=== PATIENT | female | born 1970 | race Two or more races ===

== ENCOUNTER 2024-01-21 15:18 | Inpatient (IN) | payer MEDICAID, OTHER ==
[~2024-01-21] VITALS: Ht 165.1 cm; Wt 68.2 kg
[2024-01-21] MEDS: ONDANSETRON HCL 4 MG/2 ML VIAL IV ONE (18:40)
[2024-01-21] MEDS: NITROGLYCERIN 2% OINT 1GM PKG TD ONE (18:44)
[2024-01-21] MEDS: MORPHINE SULFATE 4 MG/ML SYR/VIAL IV ONE (18:45)
[2024-01-21 19:10] LABS: Basophils # (auto) 0.1 10 ^3/uL (0-0.2); Basophils % (auto) 1.2 % (0.0-2.0); Eosinophils # (auto) 0.2 10 ^3/uL (0-0.8); Hematocrit 34.5 % (36.0-46.0); Hemoglobin 11.3 g/dL (12.2-16.2); Lymphocytes # (auto) 1.9 10 ^3/uL (0.4-5.4); Lymphocytes % (auto) 36.1 % (10.0-50.0); Mean Corpuscular Hemoglobin 29.9 pg (28.0-32.0); Mean Corpuscular Hgb Conc. 32.9 g/dL (32.0-36.0); Mean Corpuscular Volume 90.9 fL (80.0-100.0); Monocytes # (auto) 0.5 10 ^3/uL (0-1.3); Monocytes % (auto) 9.5 % (0.0-12.0); Neutrophils # (auto) 2.7 10 ^3/uL (1.6-8.6); Neutrophils % (auto) 50.2 % (37.0-80.0); Nucleated Red Blood Cells % 0.1 %; Red Blood Cells 3.79 10^6/uL (4.0-5.20); Red Cell Distribution Width 17.9 % (11.8-14.3); White Blood Cell 5.3 10^3/uL (4.4-10.8)
[2024-01-21 19:27] LABS: Alkaline Phosphatase 51 U/L (46-116); Anion Gap 11 (5-15); BUN/Creatinine Ratio 3.7 (10.0-20.0); Blood Urea Nitrogen 24 mg/dL (9-23); Calcium 9.9 mg/dL (8.7-10.4); Carbon Dioxide 30 mmol/L (20-30); Chloride 98 mmol/L (98-107); Glucose 122 mg/dL (74-106); Potassium 4.4 mmol/L (3.5-5.1); Sodium 139 mmol/L (136-145)
[2024-01-21 19:28] LABS: Albumin 3.9 g/dL (3.2-4.8); Aspartate Aminotransferase < 8 U/L (13-40)
[2024-01-21 19:29] LABS: Bilirubin, Total 0.3 mg/dL (0.2-1.0); Total Protein 7.1 g/dL (5.7-8.2)
[2024-01-21 19:30] LABS: Alanine Aminotransferase < 9 U/L (7-40)
[2024-01-21] MEDS: LABETALOL HCL 20 MG/4 ML VL IV ONE (21:51)
[2024-01-21] MEDS: FUROSEMIDE 40 MG/4 ML VIAL IV ONE (21:52)
[2024-01-21] MEDS ORDERED: DOCUSATE SOD 100 MG CAP PO PRN (22:00)
[2024-01-21] MEDS ORDERED: FUROSEMIDE 40 MG/4 ML VIAL IV SCH (22:00)
[2024-01-21] MEDS ORDERED: ACETAMINOPHEN 325 MG TAB PO PRN (22:00)
[2024-01-21] MEDS: SODIUM CHLOR 0.9% PF (SALINE LOCK) 10ML VIAL/SYR IV SCH (22:08)
[2024-01-21 22:46] VITALS: PULSE 78; RESP 18; O2SAT 95
[2024-01-21] MEDS: hydrALAZINE HCL 20 MG/ML VL IV PRN (23:27)
[2024-01-21] MEDS: ONDANSETRON HCL 4 MG/2 ML VIAL IV PRN (23:28)
[2024-01-22] VITALS (9 sets, daily range): BP systolic 142–197; BP diastolic 49–104; PULSE 76–96; RESP 16–20; TEMP 97.8–98; O2SAT 91–97
[2024-01-22] MEDS: diphenhdrAMINE HCL 25 MG CAP PO ONE (00:13)
[2024-01-22] MEDS: HYDROcodone-ACET 5/325MG TAB PO PRN (02:54)
[2024-01-22] MEDS: FUROSEMIDE 40 MG/4 ML VIAL IV SCH (05:03)
[2024-01-22] MEDS: PANTOPRAZOLE 40 MG/10 ML VIAL INJ IV SCH (09:20)
[2024-01-22] MEDS: hydrALAZINE HCL 20 MG/ML VL IV ONE (11:45)
[2024-01-22] MEDS ORDERED: ASPI-543 PO (19:14)
[2024-01-22] MEDS ORDERED: METF-370 PO (19:14)
[2024-01-22] MEDS ORDERED: CARV12.544 PO (19:14)
[2024-01-22] MEDS ORDERED: DICY-89 PO (19:14)
[2024-01-22] MEDS ORDERED: AMIT25TA20 PO (19:14)
[2024-01-22] MEDS ORDERED: CEFP200T15 PO (19:14)
[2024-01-22] MEDS ORDERED: SENN-58 PO (19:14)
[2024-01-22] MEDS ORDERED: HYDR-4902 PO (19:14)
[2024-01-22] MEDS ORDERED: GLIP5TAB21 PO (19:14)
[2024-01-22] MEDS: ATORVASTATIN 20 MG TAB PO SCH (21:48)
[2024-01-22] MEDS: SACUBITRIL-VALSARTAN 24mg/26mg TAB PO SCH (21:49)
[2024-01-22] MEDS: HEPARIN SODIUM (PORCINE) 5000 UNITS/ML 1ML VIAL SC SCH (21:50)
[2024-01-23] VITALS (9 sets, daily range): BP systolic 138–184; BP diastolic 70–111; PULSE 77–92; RESP 17–20; TEMP 97.3–98.7; O2SAT 93–98
[2024-01-23] MEDS: hydrALAZINE HCL 20 MG/ML VL IV ONE (06:22)
[2024-01-23] MEDS ORDERED: SODIUM CHL 0.9% 1000 ML BAG XX ONE (07:00)
[2024-01-23 07:08] LABS: Basophils # (auto) 0.1 10 ^3/uL (0-0.2); Eosinophils # (auto) 0.3 10 ^3/uL (0-0.8); Eosinophils % (auto) 5.6 % (0.0-7.0); Hematocrit 39.2 % (36.0-46.0); Hemoglobin 12.8 g/dL (12.2-16.2); Lymphocytes # (auto) 1.8 10 ^3/uL (0.4-5.4); Lymphocytes % (auto) 29.4 % (10.0-50.0); Mean Corpuscular Hemoglobin 29.8 pg (28.0-32.0); Mean Corpuscular Hgb Conc. 32.8 g/dL (32.0-36.0); Monocytes # (auto) 0.5 10 ^3/uL (0-1.3); Monocytes % (auto) 7.7 % (0.0-12.0); Neutrophils # (auto) 3.4 10 ^3/uL (1.6-8.6); Neutrophils % (auto) 56.3 % (37.0-80.0); Nucleated Red Blood Cells % 0.2 %; Red Blood Cells 4.31 10^6/uL (4.0-5.20); Red Cell Distribution Width 18.4 % (11.8-14.3)
[2024-01-23 07:20] LABS: Chloride 99 mmol/L (98-107); Potassium 4.9 mmol/L (3.5-5.1); Sodium 136 mmol/L (136-145)
[2024-01-23 07:21] LABS: Anion Gap 9 (5-15); Calcium 10.1 mg/dL (8.7-10.4); Carbon Dioxide 28 mmol/L (20-30)
[2024-01-23 07:26] LABS: BUN/Creatinine Ratio 3.6 (10.0-20.0); Blood Urea Nitrogen 29 mg/dL (9-23); Glucose 100 mg/dL (74-106)
[2024-01-23] MEDS ORDERED: FURO1TAB31 PO (08:11)
[2024-01-23] MEDS ORDERED: ATOR20TA50 PO (08:11)
[2024-01-23] MEDS ORDERED: SPIR25TA8 PO (08:11)
[2024-01-23] MEDS: ASPirin 81 mg TAB PO SCH (10:08)
[2024-01-24 01:00] VITALS: BP 179/87; PULSE 88; RESP 17; TEMP 97.4; O2SAT 90
[2024-01-24 05:00] VITALS: BP 163/81; PULSE 99; RESP 17; TEMP 98.1; O2SAT 90
[2024-01-24 07:06] LABS: Chloride 99 mmol/L (98-107); Potassium 4.2 mmol/L (3.5-5.1); Sodium 138 mmol/L (136-145)
[2024-01-24 07:07] LABS: Calcium 10.8 mg/dL (8.7-10.4)
[2024-01-24 07:12] LABS: BUN/Creatinine Ratio 3.6 (10.0-20.0); Blood Urea Nitrogen 24 mg/dL (9-23); Glucose 113 mg/dL (74-106)
[2024-01-24 07:15] LABS: Basophils # (auto) 0.1 10 ^3/uL (0-0.2); Basophils % (auto) 1.1 % (0.0-2.0); Eosinophils # (auto) 0.3 10 ^3/uL (0-0.8); Eosinophils % (auto) 6.4 % (0.0-7.0); Hematocrit 37.2 % (36.0-46.0); Hemoglobin 12.2 g/dL (12.2-16.2); Lymphocytes # (auto) 1.6 10 ^3/uL (0.4-5.4); Lymphocytes % (auto) 32.3 % (10.0-50.0); Mean Corpuscular Hgb Conc. 32.9 g/dL (32.0-36.0); Mean Corpuscular Volume 91.3 fL (80.0-100.0); Monocytes # (auto) 0.5 10 ^3/uL (0-1.3); Monocytes % (auto) 9.5 % (0.0-12.0); Neutrophils # (auto) 2.5 10 ^3/uL (1.6-8.6); Neutrophils % (auto) 50.7 % (37.0-80.0); Nucleated Red Blood Cells % 0.1 %; Red Blood Cells 4.07 10^6/uL (4.0-5.20); Red Cell Distribution Width 18.7 % (11.8-14.3)
[2024-01-24 07:32] LABS: Anion Gap 9 (5-15); Carbon Dioxide 30 mmol/L (20-30)
[2024-01-24 08:00] VITALS: PULSE 91; PULSE 94; RESP 17; O2SAT 95
[2024-01-24 09:21] VITALS: BP 197/95; PULSE 91; RESP 17; TEMP 97.6; O2SAT 95
[2024-01-24 14:06] VITALS: BP 179/87; PULSE 83; RESP 17; TEMP 97.5; O2SAT 99
[2024-01-24 14:50] VITALS: BP 152/78; PULSE 88; RESP 18; O2SAT 97
== END 2024-01-24 14:55 | disposition home or self-care (01) | DRG 194 ==
LOC: EDBD 15:18 → ER 15:18 → TELE 21:57 → TELE-EAST 21:57
PROVIDERS: ADMIT Internal Medicine Pulmonary Disease; ATTEND Emergency Medicine
PROC: 5A1D70Z Performance of Urinary Filtration, Intermittent, Less than 6 Hours Per Day (ICD-10-PCS; principal; 2024-01-23)
DX: I13.2 Hypertensive heart and chronic kidney disease with heart failure and with stage 5 chronic kidney disease, or end stage renal disease (principal); N18.6 End stage renal disease; E11.22 Type 2 diabetes mellitus with diabetic chronic kidney disease; I16.0 Hypertensive urgency; I25.10 Atherosclerotic heart disease of native coronary artery without angina pectoris; I50.43 Acute on chronic combined systolic (congestive) and diastolic (congestive) heart failure; M54.50 Low back pain, unspecified; Z95.1 Presence of aortocoronary bypass graft; Z99.2 Dependence on renal dialysis; Z86.73 Personal history of transient ischemic attack (TIA), and cerebral infarction without residual deficits; Z88.1 Allergy status to other antibiotic agents; Z88.8 Allergy status to other drugs, medicaments and biological substances; Z79.899 Other long term (current) drug therapy; Z88.6 Allergy status to analgesic agent
CPT/HCPCS: 36415; 71045; 76775; 80048; 80053; 83880; 84484; 85025; 87081; 87340; 90935; 93005; 93306; 96374; 96375; G0378; J1642; J2405; J2470

== ENCOUNTER 2024-02-14 12:58 | Inpatient (IN) | payer MEDICAID ==
[~2024-02-14] VITALS: Ht 167.6 cm; Wt 72.4 kg
[~2024-02-14 12:58] MED LIST: AMIT25TA20 PO; ASPI-543 PO; ATOR20TA50 PO; CARV12.544 PO; DICY-89 PO; FURO1TAB31 PO; GLIP5TAB21 PO; HYDR-4902 PO; METF-370 PO; SENN-58 PO; SPIR25TA8 PO
[2024-02-14 13:50] VITALS: PULSE 78; RESP 12; O2SAT 94
[2024-02-14] MEDS: ONDANSETRON HCL 4 MG/2 ML VIAL IV ONE (14:48)
[2024-02-14] MEDS: HYDROmorphone HCL 2 MG/ML VL/or syr IV ONE (14:49)
[2024-02-14 14:52] LABS: Basophils # (auto) 0 10 ^3/uL (0-0.2); Basophils % (auto) 0.9 % (0.0-2.0); Eosinophils # (auto) 0.2 10 ^3/uL (0-0.8); Eosinophils % (auto) 4.9 % (0.0-7.0); Hematocrit 35.4 % (36.0-46.0); Hemoglobin 11.4 g/dL (12.2-16.2); Lymphocytes # (auto) 1.8 10 ^3/uL (0.4-5.4); Lymphocytes % (auto) 42.4 % (10.0-50.0); Mean Corpuscular Hemoglobin 29.5 pg (28.0-32.0); Mean Corpuscular Hgb Conc. 32.3 g/dL (32.0-36.0); Mean Corpuscular Volume 91.2 fL (80.0-100.0); Monocytes # (auto) 0.3 10 ^3/uL (0-1.3); Monocytes % (auto) 7.1 % (0.0-12.0); Neutrophils # (auto) 1.9 10 ^3/uL (1.6-8.6); Neutrophils % (auto) 44.7 % (37.0-80.0); Nucleated Red Blood Cells % 0.1 %; Platelet Count (auto) 161 10^3/uL (140-450); Red Blood Cells 3.88 10^6/uL (4.0-5.20); Red Cell Distribution Width 18.1 % (11.8-14.3); White Blood Cell 4.3 10^3/uL (4.4-10.8)
[2024-02-14 15:08] LABS: Albumin 3.7 g/dL (3.2-4.8); Alkaline Phosphatase 73 U/L (46-116); Anion Gap 6 (5-15); Aspartate Aminotransferase 10 U/L (13-40); BUN/Creatinine Ratio 4.9 (10.0-20.0); Blood Urea Nitrogen 34 mg/dL (9-23); Calcium 9.5 mg/dL (8.7-10.4); Carbon Dioxide 30 mmol/L (20-30); Chloride 103 mmol/L (98-107); Glucose 122 mg/dL (74-106); Potassium 3.6 mmol/L (3.5-5.1); Sodium 139 mmol/L (136-145)
[2024-02-14 15:09] LABS: Bilirubin, Total 0.3 mg/dL (0.2-1.0); Total Protein 6.5 g/dL (5.7-8.2)
[2024-02-14 15:38] LABS: Alanine Aminotransferase < 9 U/L (7-40)
[2024-02-14 15:50] LABS: Lipase 29 U/L (12-53)
[2024-02-14] MEDS ORDERED: ONDANSETRON HCL 4 MG/2 ML VIAL IV PRN (21:00)
[2024-02-14] MEDS ORDERED: DOCUSATE SOD 100 MG CAP PO PRN (21:00)
[2024-02-14] MEDS ORDERED: DEXTROSE (50%) 50ML SYRG IV PRN (21:00)
[2024-02-14] MEDS: cefTRIAXone 1GM/50ML D5W 50 ML IV ONE ×2 (21:00→23:29)
[2024-02-14] MEDS ORDERED: ACETAMINOPHEN 325 MG TAB PO PRN (21:00)
[2024-02-14] MEDS: SODIUM CHLOR 0.9% PF (SALINE LOCK) 10ML VIAL/SYR IV SCH (22:00)
[2024-02-14] MEDS ORDERED: NITROGLYCERIN 0.4 MG SL TAB SL PRN (22:15)
[2024-02-14] MEDS: ATORVASTATIN 20 MG TAB PO SCH (23:26)
[2024-02-14] MEDS: CARVEDILOL 3.125 MG TAB PO SCH (23:27)
[2024-02-15] VITALS (9 sets, daily range): BP systolic 114–194; BP diastolic 64–84; PULSE 62–90; RESP 17–20; TEMP 97.7–99.5; O2SAT 93–99
[2024-02-15] MEDS: ACCU-CHEK COMFORT CURVE STRIP VI SCH (01:11)
[2024-02-15] MEDS: InsuLIN REG 1unit/0.01ml Soln (100units/ml) SC SCH (01:12)
[2024-02-15] MEDS: DOXYCYCLINE 100MG/250ML 250 ML IV SCH (01:22)
[2024-02-15 08:51] LABS: Basophils # (auto) 0 10 ^3/uL (0-0.2); Basophils % (auto) 0.4 % (0.0-2.0); Eosinophils # (auto) 0.2 10 ^3/uL (0-0.8); Eosinophils % (auto) 5.2 % (0.0-7.0); Hematocrit 34.9 % (36.0-46.0); Hemoglobin 11.1 g/dL (12.2-16.2); Lymphocytes # (auto) 1.3 10 ^3/uL (0.4-5.4); Lymphocytes % (auto) 34.3 % (10.0-50.0); Mean Corpuscular Hemoglobin 29.1 pg (28.0-32.0); Mean Corpuscular Hgb Conc. 31.7 g/dL (32.0-36.0); Mean Corpuscular Volume 91.7 fL (80.0-100.0); Monocytes # (auto) 0.2 10 ^3/uL (0-1.3); Monocytes % (auto) 6.3 % (0.0-12.0); Neutrophils # (auto) 2.1 10 ^3/uL (1.6-8.6); Neutrophils % (auto) 53.8 % (37.0-80.0); Nucleated Red Blood Cells % 0.3 %; Platelet Count (auto) 168 10^3/uL (140-450); Red Blood Cells 3.81 10^6/uL (4.0-5.20); Red Cell Distribution Width 17.8 % (11.8-14.3); White Blood Cell 3.9 10^3/uL (4.4-10.8)
[2024-02-15 09:05] LABS: Albumin 3.2 g/dL (3.2-4.8); Alkaline Phosphatase 51 U/L (46-116); Anion Gap 4 (5-15); Aspartate Aminotransferase < 8 U/L (13-40); BUN/Creatinine Ratio 4.3 (10.0-20.0); Bilirubin, Total 0.4 mg/dL (0.2-1.0); Blood Urea Nitrogen 33 mg/dL (9-23); Calcium 9.6 mg/dL (8.7-10.4); Carbon Dioxide 31 mmol/L (20-30); Chloride 103 mmol/L (98-107); Glucose 70 mg/dL (74-106); Potassium 4.3 mmol/L (3.5-5.1); Sodium 138 mmol/L (136-145); Total Protein 5.9 g/dL (5.7-8.2)
[2024-02-15 09:13] LABS: Alanine Aminotransferase < 9 U/L (7-40)
[2024-02-15] MEDS: B-COMPLEX W/ C & FOLIC ACID(NEPHROVITE TAB) PO SCH (09:46)
[2024-02-15] MEDS: SEVELAMER 800 MG TAB PO SCH (09:46)
[2024-02-15] MEDS: ASPirin 81 mg TAB PO SCH (09:46)
[2024-02-15] MEDS: cefTRIAXone 1GM/50ML D5W 50 ML IV SCH (09:56)
[2024-02-15] MEDS: hydrALAZINE HCL 20 MG/ML VL IV PRN (18:04)
[2024-02-16] VITALS (8 sets, daily range): BP systolic 129–229; BP diastolic 64–105; PULSE 74–89; RESP 16–20; TEMP 86–98.9; O2SAT 93–100
[2024-02-16] MEDS ORDERED: SODIUM CHL 0.9% 1000 ML BAG XX ONE (07:00)
[2024-02-16] MEDS ORDERED: LOSA-535 PO (15:21)
[2024-02-16] MEDS ORDERED: SEVE800T8 PO (15:21)
[2024-02-16] MEDS ORDERED: HYDR50TA47 PO (15:21)
[2024-02-16] MEDS ORDERED: HYDR-3682 PO (15:21)
[2024-02-16] MEDS ORDERED: CLON0.1T PO (15:21)
[2024-02-16] MEDS ORDERED: DOCU-94 PO (15:21)
[2024-02-16] MEDS ORDERED: ESCI5TAB PO (15:21)
[2024-02-16] MEDS ORDERED: AMLO1TAB22 PO (15:21)
[2024-02-16] MEDS ORDERED: GABA-1308 PO (15:21)
[2024-02-16] MEDS ORDERED: CINA30TA2 PO (15:21)
[2024-02-16] MEDS ORDERED: APIX5TAB PO (15:21)
[2024-02-16] MEDS ORDERED: BENZ100C97 PO (15:21)
[2024-02-16] MEDS ORDERED: LACT10SO3 PO (15:21)
[2024-02-16] MEDS ORDERED: NIFE90TA75 PO (15:21)
[2024-02-16] MEDS ORDERED: LIDO1.8P EX (15:21)
[2024-02-16] MEDS ORDERED: PANT40TA2 PO (15:21)
[2024-02-16] MEDS ORDERED: CALC0.25 PO (15:21)
[2024-02-17] VITALS (10 sets, daily range): BP systolic 147–236; BP diastolic 80–111; PULSE 72–89; RESP 16–18; TEMP 97.5–98.7; O2SAT 94–98
[2024-02-17] MEDS ORDERED: SODIUM CHL 0.9% 1000 ML BAG XX ONE (07:00)
[2024-02-17] MEDS: HYDROcodone-ACET 5/325MG TAB PO PRN (11:20)
[2024-02-17] MEDS: POLYETHYLENE GLYCOL 17 GM PWDR PO ONE (18:17)
== END 2024-02-17 21:25 | disposition home health service (06) | DRG 133 ==
LOC: EDBD 12:58 → ER 12:58 → TELE 22:15 → TELE-WESTW 02-15 03:15
PROVIDERS: ADMIT Nurse Practitioner Family; ATTEND Nurse Practitioner Acute Care
PROC: 5A1D70Z Performance of Urinary Filtration, Intermittent, Less than 6 Hours Per Day (ICD-10-PCS; principal; 2024-02-16)
PROC: 5A1D70Z Performance of Urinary Filtration, Intermittent, Less than 6 Hours Per Day (ICD-10-PCS; 2024-02-17)
DX: J96.01 Acute respiratory failure with hypoxia (principal); I50.33 Acute on chronic diastolic (congestive) heart failure; J15.69 Pneumonia due to other Gram-negative bacteria; E87.20 Acidosis, unspecified; I27.20 Pulmonary hypertension, unspecified; D63.1 Anemia in chronic kidney disease; N18.6 End stage renal disease; J15.9 Unspecified bacterial pneumonia; I13.2 Hypertensive heart and chronic kidney disease with heart failure and with stage 5 chronic kidney disease, or end stage renal disease; I16.0 Hypertensive urgency; E11.22 Type 2 diabetes mellitus with diabetic chronic kidney disease; E78.5 Hyperlipidemia, unspecified; K59.00 Constipation, unspecified; K80.20 Calculus of gallbladder without cholecystitis without obstruction; E21.1 Secondary hyperparathyroidism, not elsewhere classified; D72.819 Decreased white blood cell count, unspecified; M54.9 Dorsalgia, unspecified; I35.1 Nonrheumatic aortic (valve) insufficiency; N30.00 Acute cystitis without hematuria; I25.10 Atherosclerotic heart disease of native coronary artery without angina pectoris; Z95.1 Presence of aortocoronary bypass graft; Z88.6 Allergy status to analgesic agent; Z88.5 Allergy status to narcotic agent; Z88.8 Allergy status to other drugs, medicaments and biological substances; Z79.899 Other long term (current) drug therapy; Z99.3 Dependence on wheelchair; Z99.2 Dependence on renal dialysis
CPT/HCPCS: 36415; 71045; 74176; 80053; 82962; 83690; 85025; 87340; 90935; 93005; 96365; 96375; G0378; J1642; J2405; J3490

== ENCOUNTER 2024-03-30 11:19 | Inpatient (IN) | payer MEDICAID ==
[~2024-03-30] VITALS: Ht 160 cm; Wt 76.0 kg
[~2024-03-30 11:19] MED LIST changes: +AMLO1TAB22 PO; +APIX5TAB PO; -ATOR20TA50 PO; +BENZ100C97 PO; +CALC0.25 PO; +CINA30TA2 PO; +CLON0.1T PO; +DOCU-94 PO; +ESCI5TAB PO; -FURO1TAB31 PO; +GABA-1308 PO; +HYDR-3682 PO; +HYDR50TA47 PO; +LACT10SO3 PO; +LIDO1.8P EX; +LOSA-535 PO; +NIFE90TA75 PO; +PANT40TA2 PO; +SEVE800T8 PO; -SPIR25TA8 PO
[2024-03-30 12:18] LABS: Basophils # (auto) 0.1 10 ^3/uL (0-0.2); Basophils % (auto) 1.3 % (0.0-2.0); Eosinophils # (auto) 0.1 10 ^3/uL (0-0.8); Eosinophils % (auto) 2.1 % (0.0-7.0); Hematocrit 31.7 % (36.0-46.0); Hemoglobin 10.1 g/dL (12.2-16.2); Lymphocytes # (auto) 1.2 10 ^3/uL (0.4-5.4); Lymphocytes % (auto) 24.7 % (10.0-50.0); Mean Corpuscular Hemoglobin 29.3 pg (28.0-32.0); Mean Corpuscular Volume 91.6 fL (80.0-100.0); Monocytes # (auto) 0.2 10 ^3/uL (0-1.3); Monocytes % (auto) 3.8 % (0.0-12.0); Neutrophils # (auto) 3.4 10 ^3/uL (1.6-8.6); Neutrophils % (auto) 68.1 % (37.0-80.0); Nucleated Red Blood Cells % 0.4 %; Platelet Count (auto) 185 10^3/uL (140-450); Red Blood Cells 3.46 10^6/uL (4.0-5.20)
[2024-03-30] MEDS: cloNIDine HCL 0.1 MG TAB PO ONE (12:21)
[2024-03-30 12:27] LABS: Albumin 3.9 g/dL (3.2-4.8); Alkaline Phosphatase 59 U/L (46-116); Anion Gap 9 (5-15); Aspartate Aminotransferase 9 U/L (13-40); BUN/Creatinine Ratio 5.4 (10.0-20.0); Bilirubin, Total 0.5 mg/dL (0.2-1.0); Blood Urea Nitrogen 36 mg/dL (9-23); Carbon Dioxide 29 mmol/L (20-31); Chloride 98 mmol/L (98-107); Glucose 105 mg/dL (74-106); Potassium 3.9 mmol/L (3.5-5.1); Sodium 136 mmol/L (136-145); Total Protein 7.4 g/dL (5.7-8.2)
[2024-03-30 12:28] LABS: Alanine Aminotransferase < 9 U/L (7-40)
[2024-03-30] MEDS: ENOXAPARIN SOD 80 MG/0.8ML SYRINGE SC ONE (13:01)
[2024-03-30 13:46] VITALS: PULSE 70; RESP 12; O2SAT 100
[2024-03-30] MEDS: hydrALAZINE HCL 20 MG/ML VL IV ONE (15:42)
[2024-03-30] MEDS ORDERED: DOCUSATE SOD 100 MG CAP PO PRN (15:45)
[2024-03-30] MEDS ORDERED: ACETAMINOPHEN 325 MG TAB PO PRN (15:45)
[2024-03-30] MEDS ORDERED: ONDANSETRON HCL 4 MG/2 ML VIAL IV PRN (15:45)
[2024-03-30] MEDS ORDERED: NITROGLYCERIN 0.4 MG SL TAB SL PRN (17:00)
[2024-03-30] MEDS: AZITHROMYCIN 500MG/ 250ML 250 ML IV ONE (18:28)
[2024-03-30] MEDS: SEVELAMER 800 MG TAB PO SCH (18:28)
[2024-03-30] MEDS: amLODIPine BESYLATE 5 MG TAB PO ONE (18:29)
[2024-03-30] MEDS: hydrALAZINE HCL 25 MG TAB PO SCH (22:00)
[2024-03-30] MEDS: CARVEDILOL 12.5 MG TAB PO SCH (22:00)
[2024-03-30] MEDS: SODIUM CHLOR 0.9% PF (SALINE LOCK) 10ML VIAL/SYR IV SCH (22:00)
[2024-03-30 23:00] VITALS: PULSE 81; RESP 16; O2SAT 96
[2024-03-31] VITALS (9 sets, daily range): BP systolic 106–178; BP diastolic 8–99; PULSE 72–119; RESP 15–19; TEMP 97.6–98.2; O2SAT 94–99
[2024-03-31 09:23] LABS: Basophils # (auto) 0.1 10 ^3/uL (0-0.2); Basophils % (auto) 1.9 % (0.0-2.0); Eosinophils # (auto) 0.3 10 ^3/uL (0-0.8); Eosinophils % (auto) 5.5 % (0.0-7.0); Hematocrit 31.6 % (36.0-46.0); Hemoglobin 10.2 g/dL (12.2-16.2); Lymphocytes # (auto) 1.5 10 ^3/uL (0.4-5.4); Lymphocytes % (auto) 30.4 % (10.0-50.0); Mean Corpuscular Hemoglobin 28.8 pg (28.0-32.0); Mean Corpuscular Hgb Conc. 32.4 g/dL (32.0-36.0); Mean Corpuscular Volume 88.7 fL (80.0-100.0); Monocytes # (auto) 0.2 10 ^3/uL (0-1.3); Monocytes % (auto) 4.9 % (0.0-12.0); Neutrophils # (auto) 2.7 10 ^3/uL (1.6-8.6); Neutrophils % (auto) 57.3 % (37.0-80.0); Nucleated Red Blood Cells % 0.1 %; Platelet Count (auto) 218 10^3/uL (140-450); Red Blood Cells 3.56 10^6/uL (4.0-5.20); Red Cell Distribution Width 17.4 % (11.8-14.3); White Blood Cell 4.8 10^3/uL (4.4-10.8)
[2024-03-31 09:39] LABS: Albumin 3.6 g/dL (3.2-4.8); Alkaline Phosphatase 56 U/L (46-116); Anion Gap 9 (5-15); Aspartate Aminotransferase 13 U/L (13-40); BUN/Creatinine Ratio 5.9 (10.0-20.0); Bilirubin, Total 0.3 mg/dL (0.2-1.0); Calcium 9.8 mg/dL (8.7-10.4); Carbon Dioxide 29 mmol/L (20-31); Chloride 97 mmol/L (98-107); Glucose 130 mg/dL (74-106); Potassium 4.7 mmol/L (3.5-5.1); Sodium 135 mmol/L (136-145); Total Protein 6.8 g/dL (5.7-8.2)
[2024-03-31] MEDS: HYDROcodone-ACET 5/325MG TAB PO PRN (09:40)
[2024-03-31] MEDS: B-COMPLEX W/ C & FOLIC ACID(NEPHROVITE TAB) PO SCH (09:40)
[2024-03-31] MEDS: amLODIPine BESYLATE 5 MG TAB PO SCH (09:41)
[2024-03-31] MEDS: ASPirin 81 mg TAB PO SCH (09:41)
[2024-03-31 09:42] LABS: Alanine Aminotransferase < 9 U/L (7-40); Blood Urea Nitrogen 46 mg/dL (9-23)
[2024-03-31] MEDS: FAMOTIDINE (10MG/ML) 2ML VL IV SCH (09:42)
[2024-03-31] MEDS: AZITHROMYCIN 500MG/ 250ML 250 ML IV SCH (10:06)
[2024-03-31 14:40] LABS: % Iron Saturation 20.3 % (15-50)
[2024-03-31] MEDS ORDERED: FUROSEMIDE 100 MG/10ML VIAL IV ONE (18:45)
[2024-04-01] VITALS (7 sets, daily range): BP systolic 155–215; BP diastolic 65–106; PULSE 78–86; RESP 16–22; TEMP 97.4–97.8; O2SAT 91–96
[2024-04-01 06:08] LABS: Basophils # (auto) 0 10 ^3/uL (0-0.2); Basophils % (auto) 1.1 % (0.0-2.0); Eosinophils # (auto) 0.2 10 ^3/uL (0-0.8); Hematocrit 27.2 % (36.0-46.0); Lymphocytes # (auto) 1.5 10 ^3/uL (0.4-5.4); Lymphocytes % (auto) 33.8 % (10.0-50.0); Mean Corpuscular Hemoglobin 29.4 pg (28.0-32.0); Mean Corpuscular Hgb Conc. 33.2 g/dL (32.0-36.0); Mean Corpuscular Volume 88.4 fL (80.0-100.0); Monocytes # (auto) 0.3 10 ^3/uL (0-1.3); Neutrophils # (auto) 2.3 10 ^3/uL (1.6-8.6); Neutrophils % (auto) 53.1 % (37.0-80.0); Nucleated Red Blood Cells % 0.2 %; Platelet Count (auto) 215 10^3/uL (140-450); Red Blood Cells 3.08 10^6/uL (4.0-5.20); Red Cell Distribution Width 16.9 % (11.8-14.3); White Blood Cell 4.3 10^3/uL (4.4-10.8)
[2024-04-01 06:15] LABS: Anion Gap 8 (5-15); Carbon Dioxide 29 mmol/L (20-31); Chloride 100 mmol/L (98-107); Potassium 4.1 mmol/L (3.5-5.1); Sodium 137 mmol/L (136-145)
[2024-04-01 06:16] LABS: Calcium 9.8 mg/dL (8.7-10.4)
[2024-04-01 06:20] LABS: Glucose 80 mg/dL (74-106)
[2024-04-01 06:21] LABS: BUN/Creatinine Ratio 4.9 (10.0-20.0)
[2024-04-01 06:41] LABS: Blood Urea Nitrogen 26 mg/dL (9-23)
[2024-04-01] MEDS: APIXABAN 5 MG TAB PO SCH (10:14)
[2024-04-01] MEDS: ERGOCALCIFEROL 50,000 UNIT(1.25MG) CAP PO SCH (10:14)
[2024-04-01] MEDS: PANTOPRAZOLE 40 MG TAB PO SCH (10:15)
[2024-04-01] MEDS: CINACALCET HYDROCHLORIDE 30 MG TAB PO SCH (12:42)
[2024-04-01] MEDS: GABAPENTIN 100 MG CAP PO SCH (15:22)
[2024-04-01] MEDS ORDERED: ERGO1CAP23 PO (17:39)
[2024-04-02] MEDS ORDERED: LABETALOL HCL 20 MG/4 ML VL IV PRN
[2024-04-02] MEDS: cloNIDine HCL 0.1 MG TAB PO PRN (00:16)
[2024-04-02 01:00] VITALS: BP 143/60; PULSE 88; RESP 20; TEMP 98.3; O2SAT 93
[2024-04-02 05:00] VITALS: BP 108/64; PULSE 72; RESP 18; TEMP 97.9; O2SAT 94
[2024-04-02] MEDS ORDERED: SODIUM CHL 0.9% 1000 ML BAG XX ONE (07:00)
[2024-04-02 07:03] LABS: Hematocrit 25.2 % (36.0-46.0); Hemoglobin 8.5 g/dL (12.2-16.2)
[2024-04-02 09:00] VITALS: BP 109/41; PULSE 71; RESP 20; TEMP 97.6; O2SAT 95
[2024-04-02] MEDS ORDERED: EPOETIN ALFA-EPBX 4,000 UNIT/ML VIAL SC ONE (21:00)
== END 2024-04-02 10:23 | disposition home or self-care (01) | DRG 194 ==
LOC: ER 11:19 → EDBD 11:19 → TELE 16:52 → TELE-WESTW 23:59
PROVIDERS: ADMIT Internal Medicine; ATTEND Internal Medicine
PROC: 5A1D70Z Performance of Urinary Filtration, Intermittent, Less than 6 Hours Per Day (ICD-10-PCS; principal; 2024-03-31)
DX: I13.2 Hypertensive heart and chronic kidney disease with heart failure and with stage 5 chronic kidney disease, or end stage renal disease (principal); I21.A1 Myocardial infarction type 2; E87.20 Acidosis, unspecified; D68.59 Other primary thrombophilia; D63.1 Anemia in chronic kidney disease; E83.39 Other disorders of phosphorus metabolism; I27.20 Pulmonary hypertension, unspecified; J18.9 Pneumonia, unspecified organism; I16.1 Hypertensive emergency; N18.6 End stage renal disease; I25.10 Atherosclerotic heart disease of native coronary artery without angina pectoris; I50.33 Acute on chronic diastolic (congestive) heart failure; N25.81 Secondary hyperparathyroidism of renal origin; I35.1 Nonrheumatic aortic (valve) insufficiency; Z95.1 Presence of aortocoronary bypass graft; Z99.2 Dependence on renal dialysis; Z88.6 Allergy status to analgesic agent; Z88.5 Allergy status to narcotic agent; Z90.49 Acquired absence of other specified parts of digestive tract; Z87.891 Personal history of nicotine dependence
CPT/HCPCS: 36415; 71045; 80048; 80053; 82306; 82728; 83036; 83540; 83550; 83880; 83970; 84484; 85014; 85018; 85025; 90935; 93005; 96372; 96374; 99291; G0378; J3490

== ENCOUNTER 2024-04-08 15:17 | Inpatient (IN) | payer MEDICAID ==
[~2024-04-08] VITALS: Ht 167.6 cm; Wt 81.5 kg
[~2024-04-08 15:17] MED LIST changes: +ERGO1CAP23 PO; -GLIP5TAB21 PO; -METF-370 PO
[2024-04-08 21:40] LABS: Basophils # (auto) 0.1 10 ^3/uL (0-0.2); Basophils % (auto) 1.8 % (0.0-2.0); Eosinophils # (auto) 0.2 10 ^3/uL (0-0.8); Eosinophils % (auto) 3.2 % (0.0-7.0); Hematocrit 32.8 % (36.0-46.0); Hemoglobin 10.4 g/dL (12.2-16.2); Lymphocytes # (auto) 1.3 10 ^3/uL (0.4-5.4); Lymphocytes % (auto) 24.2 % (10.0-50.0); Mean Corpuscular Hemoglobin 28.9 pg (28.0-32.0); Mean Corpuscular Hgb Conc. 31.7 g/dL (32.0-36.0); Monocytes # (auto) 0.4 10 ^3/uL (0-1.3); Monocytes % (auto) 7.4 % (0.0-12.0); Neutrophils # (auto) 3.3 10 ^3/uL (1.6-8.6); Neutrophils % (auto) 63.4 % (37.0-80.0); Nucleated Red Blood Cells % 0.1 %; Platelet Count (auto) 228 10^3/uL (140-450); Red Cell Distribution Width 17.7 % (11.8-14.3); White Blood Cell 5.2 10^3/uL (4.4-10.8)
[2024-04-08 21:50] LABS: Alanine Aminotransferase 30 U/L (7-40); Albumin 4.2 g/dL (3.2-4.8); Alkaline Phosphatase 116 U/L (46-116); Anion Gap 12 (5-15); Aspartate Aminotransferase 15 U/L (13-40); BUN/Creatinine Ratio 7.2 (10.0-20.0); Blood Urea Nitrogen 56 mg/dL (9-23); Calcium 9.7 mg/dL (8.7-10.4); Carbon Dioxide 25 mmol/L (20-31); Chloride 98 mmol/L (98-107); Glucose 96 mg/dL (74-106); Potassium 4.8 mmol/L (3.5-5.1); Sodium 135 mmol/L (136-145)
[2024-04-08 21:51] LABS: Bilirubin, Total 0.3 mg/dL (0.2-1.0); Total Protein 8.1 g/dL (5.7-8.2)
[2024-04-08 22:01] LABS: Lipase 59 U/L (12-53)
[2024-04-08] MEDS ORDERED: DOCUSATE SOD 100 MG CAP PO PRN (22:45)
[2024-04-08] MEDS ORDERED: MORPHINE SULFATE INJ 2 MG/ml SYRG IV PRN (23:30)
[2024-04-09] VITALS (8 sets, daily range): BP systolic 121–167; BP diastolic 59–76; PULSE 69–86; RESP 16–19; TEMP 97.6–98; O2SAT 95–98
[2024-04-09] MEDS: ONDANSETRON HCL 4 MG/2 ML VIAL IV PRN (00:19)
[2024-04-09] MEDS: MORPHINE SULFATE INJ 2 MG/ml SYRG IV ONE (00:20)
[2024-04-09] MEDS: NITROGLYCERIN 2% OINT 1GM PKG TD ONE (00:21)
[2024-04-09] MEDS: hydrALAZINE HCL 20 MG/ML VL IV PRN ×2 (00:21→22:42)
[2024-04-09] MEDS: metroNIDAZOLE 500MG/100ML 100 ML IV ONE (00:23)
[2024-04-09 02:46] LABS: Rapid Influenza A Negative (Negative); Rapid Influenza B Negative (Negative)
[2024-04-09 02:48] LABS: COVID19 ANTIGEN SOFIA FIA NEGATIVE (NEGATIVE)
[2024-04-09] MEDS: diphenhdrAMINE HCL 50 MG/1 ML VL IV PRN (04:22)
[2024-04-09] MEDS: SODIUM CHLOR 0.9% PF (SALINE LOCK) 10ML VIAL/SYR IV SCH (05:13)
[2024-04-09] MEDS: AZITHROMYCIN 500MG/ 250ML 250 ML IV ONE (08:23)
[2024-04-09] MEDS: SEVELAMER 800 MG TAB PO SCH (08:23)
[2024-04-09] MEDS: CARVEDILOL 12.5 MG TAB PO SCH (10:00)
[2024-04-09] MEDS: amLODIPine BESYLATE 5 MG TAB PO SCH (10:00)
[2024-04-09] MEDS: SODIUM CHL 0.9% 1000 ML BAG XX ONE (11:15)
[2024-04-09 12:32] LABS: Alanine Aminotransferase 21 U/L (7-40); Albumin 3.3 g/dL (3.2-4.8); Alkaline Phosphatase 81 U/L (46-116); Anion Gap 14 (5-15); Aspartate Aminotransferase 14 U/L (13-40); Bilirubin, Total 0.2 mg/dL (0.2-1.0); Blood Urea Nitrogen 53 mg/dL (9-23); Calcium 8.6 mg/dL (8.7-10.4); Carbon Dioxide 20 mmol/L (20-31); Chloride 100 mmol/L (98-107); Glucose 78 mg/dL (74-106); Potassium 5.1 mmol/L (3.5-5.1); Sodium 134 mmol/L (136-145)
[2024-04-09 12:33] LABS: Total Protein 6.3 g/dL (5.7-8.2)
[2024-04-09] MEDS: ASPirin 81 mg TAB PO SCH (13:15)
[2024-04-09] MEDS: B-COMPLEX W/ C & FOLIC ACID(NEPHROVITE TAB) PO SCH (13:15)
[2024-04-09] MEDS: FAMOTIDINE (10MG/ML) 2ML VL IV SCH (13:15)
[2024-04-09] MEDS ORDERED: HEPARIN SODIUM (PORCINE) 5000 UNITS/ML 1ML VIAL IV ONE (18:00)
[2024-04-09] MEDS ORDERED: HEPARIN DRIP/D5W 100UNITS/ML 250 ML IV SCH (18:00)
[2024-04-09] MEDS: NITROGLYCERIN 0.4 MG SL TAB SL PRN (18:09)
[2024-04-09] MEDS: CLOPIDOGREL BISULFATE 75 MG TAB PO ONE (18:40)
[2024-04-09 19:34] LABS: INR 1.25 (0.9-1.15); Partial Thromboplastin Time 24.5 SEC (24.5-34.5)
[2024-04-09 19:37] LABS: Basophils # (auto) 0 10 ^3/uL (0-0.2); Basophils % (auto) 0.8 % (0.0-2.0); Eosinophils # (auto) 0.2 10 ^3/uL (0-0.8); Eosinophils % (auto) 4.5 % (0.0-7.0); Hematocrit 29.8 % (36.0-46.0); Hemoglobin 9.7 g/dL (12.2-16.2); Lymphocytes # (auto) 1.7 10 ^3/uL (0.4-5.4); Lymphocytes % (auto) 38.3 % (10.0-50.0); Mean Corpuscular Hemoglobin 29.3 pg (28.0-32.0); Mean Corpuscular Hgb Conc. 32.5 g/dL (32.0-36.0); Mean Corpuscular Volume 90.2 fL (80.0-100.0); Monocytes # (auto) 0.3 10 ^3/uL (0-1.3); Monocytes % (auto) 7.5 % (0.0-12.0); Neutrophils # (auto) 2.2 10 ^3/uL (1.6-8.6); Neutrophils % (auto) 48.9 % (37.0-80.0); Nucleated Red Blood Cells % 0.2 %; Platelet Count (auto) 213 10^3/uL (140-450); Red Cell Distribution Width 17.8 % (11.8-14.3); White Blood Cell 4.5 10^3/uL (4.4-10.8)
[2024-04-09] MEDS: HEPARIN SODIUM (PORCINE) 5000 UNITS/ML 1ML VIAL IV ONE (21:21)
[2024-04-09] MEDS: HEPARIN DRIP/D5W 100UNITS/ML 250 ML IV SCH (21:22)
[2024-04-09] MEDS: EPOETIN ALFA-EPBX 10,000 UNIT/1ML VIAL SC ONE (22:25)
[2024-04-10] VITALS (10 sets, daily range): BP systolic 136–152; BP diastolic 54–96; PULSE 69–88; RESP 14–19; TEMP 97.6–98.3; O2SAT 94–100
[2024-04-10 09:55] LABS: Basophils # (auto) 0.1 10 ^3/uL (0-0.2); Basophils % (auto) 1.5 % (0.0-2.0); Eosinophils # (auto) 0.2 10 ^3/uL (0-0.8); Eosinophils % (auto) 3.7 % (0.0-7.0); Hemoglobin 8.8 g/dL (12.2-16.2); Lymphocytes # (auto) 1.1 10 ^3/uL (0.4-5.4); Lymphocytes % (auto) 26.1 % (10.0-50.0); Mean Corpuscular Hemoglobin 29.2 pg (28.0-32.0); Mean Corpuscular Hgb Conc. 32.6 g/dL (32.0-36.0); Mean Corpuscular Volume 89.4 fL (80.0-100.0); Monocytes # (auto) 0.2 10 ^3/uL (0-1.3); Monocytes % (auto) 4.7 % (0.0-12.0); Neutrophils # (auto) 2.7 10 ^3/uL (1.6-8.6); Nucleated Red Blood Cells % 0.1 %; Platelet Count (auto) 226 10^3/uL (140-450); Red Blood Cells 3.02 10^6/uL (4.0-5.20); Red Cell Distribution Width 18.3 % (11.8-14.3); White Blood Cell 4.3 10^3/uL (4.4-10.8)
[2024-04-10] MEDS ORDERED: CLOPIDOGREL BISULFATE 75 MG TAB PO SCH (10:00)
[2024-04-10] MEDS: diphenhdrAMINE HCL 50 MG/1 ML VL IV ONE (11:15)
[2024-04-10 11:29] LABS: Chloride 102 mmol/L (98-107); Potassium 4.4 mmol/L (3.5-5.1); Sodium 138 mmol/L (136-145)
[2024-04-10 11:30] LABS: Anion Gap 8 (5-15); Carbon Dioxide 28 mmol/L (20-31)
[2024-04-10 11:31] LABS: Calcium 9.3 mg/dL (8.7-10.4)
[2024-04-10 11:35] LABS: Glucose 89 mg/dL (74-106)
[2024-04-10 11:36] LABS: BUN/Creatinine Ratio 7.6 (10.0-20.0); Blood Urea Nitrogen 49 mg/dL (9-23)
[2024-04-10] MEDS: AZITHROMYCIN 500MG/ 250ML 250 ML IV SCH (13:01)
[2024-04-11] VITALS (8 sets, daily range): BP systolic 136–179; BP diastolic 66–110; PULSE 68–87; RESP 16–19; TEMP 97.5–98.3; O2SAT 94–95
[2024-04-11] MEDS: NIFEdipine ER 30 MG TAB PO ONE (14:30)
[2024-04-11] MEDS ORDERED: NIFE1TAB31 PO (15:27)
[2024-04-11] MEDS ORDERED: CARV-216 PO (15:27)
[2024-04-11] MEDS ORDERED: CLOP75TA28 PO (15:31)
[2024-04-11] MEDS: ACETAMINOPHEN 325 MG TAB PO PRN (16:31)
[2024-04-11] MEDS ORDERED: NIFEdipine ER 30 MG TAB PO SCH ×2 (18:00→22:00)
[2024-04-11] MEDS: HYDROcodone-ACET 5/325MG TAB PO PRN (19:18)
[2024-04-11] MEDS: NIFEdipine ER 30 MG TAB PO SCH (19:23)
[2024-04-12 01:00] VITALS: BP 208/93; PULSE 80; RESP 18; TEMP 98.3; O2SAT 95
[2024-04-12 05:00] VITALS: BP 135/80; PULSE 87; RESP 19; O2SAT 95
[2024-04-12 09:26] LABS: Hepatitis B Surface Antigen Negative (Negative)
[2024-04-12 09:47] LABS: Hepatitis A Ab IgM Negative
[2024-04-12 09:48] LABS: Hepatitis B Core IgM Negative; Hepatitis C Antibody Negative (Negative)
== END 2024-04-12 07:45 | disposition home health service (06) | DRG 199 ==
LOC: EDBD 15:17 → ER 15:18 → TELE 23:23 → TELE-EAST 04-09 09:24
PROVIDERS: ADMIT Nurse Practitioner Family; ATTEND Student in an Organized Health Care Education/Training Program
PROC: 5A1D70Z Performance of Urinary Filtration, Intermittent, Less than 6 Hours Per Day (ICD-10-PCS; principal; 2024-04-10)
DX: I16.0 Hypertensive urgency (principal); J81.0 Acute pulmonary edema; I21.A1 Myocardial infarction type 2; E87.20 Acidosis, unspecified; D63.1 Anemia in chronic kidney disease; R18.8 Other ascites; E83.39 Other disorders of phosphorus metabolism; N18.6 End stage renal disease; E11.22 Type 2 diabetes mellitus with diabetic chronic kidney disease; E87.70 Fluid overload, unspecified; I13.2 Hypertensive heart and chronic kidney disease with heart failure and with stage 5 chronic kidney disease, or end stage renal disease; K52.89 Other specified noninfective gastroenteritis and colitis; I25.10 Atherosclerotic heart disease of native coronary artery without angina pectoris; Z20.822 Contact with and (suspected) exposure to COVID-19; F32.9 Major depressive disorder, single episode, unspecified; F41.9 Anxiety disorder, unspecified; I35.1 Nonrheumatic aortic (valve) insufficiency; I50.9 Heart failure, unspecified; Z99.2 Dependence on renal dialysis; Z95.1 Presence of aortocoronary bypass graft; Z88.6 Allergy status to analgesic agent; Z88.5 Allergy status to narcotic agent; Z82.49 Family history of ischemic heart disease and other diseases of the circulatory system; Z91.199 Patient's noncompliance with other medical treatment and regimen due to unspecified reason; Z79.4 Long term (current) use of insulin; Z79.82 Long term (current) use of aspirin; Z79.899 Other long term (current) drug therapy
CPT/HCPCS: 36415; 36600; 71045; 74176; 80048; 80053; 80074; 82805; 82962; 83690; 84484; 85025; 85610; 85730; 87081; 87426; 87804; 90935; 97163; G0378; J1642; J2405; J3490

== ENCOUNTER 2024-05-11 11:17 | Inpatient (IN) | payer MEDICAID ==
[~2024-05-11] VITALS: Ht 167.6 cm; Wt 74.7 kg
[~2024-05-11 11:17] MED LIST changes: +ATOR20TA PO; +CARV-216 PO; -CLON0.1T PO; +CLOP75TA28 PO; -ERGO1CAP23 PO; +ERGO500086 PO; +FURO40TA4 PO; -HYDR50TA47 PO; +NIFE1TAB31 PO; -NIFE90TA75 PO; +SPIR25TA8 PO
[2024-05-11] MEDS: NITROGLYCERIN 0.4 MG SL TAB SL ONE (12:06)
[2024-05-11] MEDS: LABETALOL HCL 20 MG/4 ML VL IV ONE (12:25)
--- NOTE | 2024-05-11 12:27 | ED.PDOC ---
HPI Comments HPI: Poor Historian. 53-year-old female brought in by ambulance from dialysis center for complaint of chest pain. Per EMS report, patient started developing nonspecific chest pain what happened dialysis. They stopped the dialysis and sent here for further evaluation. Also noticed her pressure is elevated 200s systolic. Completed approximately 600 cc fluids during dialysis ended up finish entire session. She would not take any over blood pressure medications in the. She takes at least five different blood pressure agents to control her blood pressure. This includes losartan, amlodipine, amiodarone, nitroglycerin, clonidine Patient is on Eliquis. Vitals: Temp:97.6 F Heart rate: 78 RR: 24 BP: 198/104 02 sat: 97 % on room air PMH: CAD, CHF, CKF, ESRD, HTN, NV, Pulmonary edema PSH: CABG, Dialysis access, cholecystectomy Social history: DENIES tobacco use, DENIES ETOH use, DENIES drug use Meds: amlodipine, eliquis, famotidine, Allergies: morphine, dialudid REVIEW OF SYSTEMS: CONSTITUTIONAL: Denies acute: fever, diaphoresis, chills, HEAD: Denies acute: headache, photophobia Eyes: Denies acute: Double vision, vision loss, eye pain, eye discharge. EARS: Denies acute: tinnitus, hearing loss, ear discharge, ear pain, THROAT: Denies acute: sore throat, swelling, difficulty swallowing , pain with swallowing, change in voice. NECK: Denies acute: neck pain, neck swelling, stiff neck. HEART: Denies acute : palpitations, LUNGS: Denies acute: SOB, wheezing, cough, hemoptysis ABDOMEN: Denies acute: abdominal pain, Nausea, Vomiting, diarrhea, melena , hematemesis, hematochezia SKIN: Denies acute: rash, redness, lesions, itchiness. EXTREMITIES: Denies acute: calf pain, numbness, tingling, weakness, denies pain in extremity. Denies acute: Low back pain. Neuro: Denies acute: focal neurological deficit, motor or sensory focal neurological deficit, tremors, seizure like activity, confusion, dizziness, change in mental status, loss of bowel or bladder function, cauda equina like symptoms. : Denies acute: dysuria, hematuria, flank pain, increase in urinary frequency. PSYCH: Denies acute: hallucination, suicidal ideation, homicidal ideation. FEMALE: Denies acute: abnormal vaginal bleeding, foul odor, unusual discharge. PHYSICAL EXAM: General: no acute distress, awake and alert. Head: normocephalic, atraumatic. Neck: supple, trachea is midline, no swelling. Throat: Normal phonation. Eyes:, no erythema, no purulent discharge, no proptosis, no icterus. Heart: regular rate, regular rhythm, no significant murmur appreciated. Lungs: no apparent respiratory distress, Able to speak in full sentences. No wheezing, no rhonchi, no crackles. No stridors Clear to auscultation bilaterally. Abdomen: Left upper quadrant tender to palpation, non distended, soft, no guarding, no rebound, + bowel sounds. Pain is chronic Neuro: Awake, Alert, oriented to name, self, situation, follows commands GCS=15. Speech is normal. Skin: no petechia, no purpura, no cyanosis, non-pale, not jaundice. Lower extremities: --trace bilateral- Pitting edema no deformity, no focal swelling, no calf TTP. Makes eye contact. moves all four extremities. Face: no apparent facial droop. Chief Complaint: Chest Pain Time Seen by MD: 11:29 Primary Care Provider: UNKNOWN Reviewed Notes: Nurses Notes, Bag Inspector Notes, Medications, Allergies Allergies: Coded Allergies: Hydromorphone (Verified Allergy, Unknown, 01/21/24) Ibuprofen (Verified Allergy, Unknown, 01/21/24) Morphine (Verified Allergy, Unknown, 01/21/24) Home Meds Active Scripts Clopidogrel Bisulfate (Plavix) 75 Mg Tab, 75 MG PO DAILY for 60 Days, #60 TAB Prov:EVETTE WISDOM MD 04/11/24 Nifedipine (Nifedipine Er) 30 Mg Tab, 30 MG PO QPM for 60 Days, #60 TAB Prov:EVETTE WISDOM MD 04/11/24 Carvedilol (COREG) 12.5 Mg Tab, 12.5 MG PO Q12HR for 60 Days, #120 TAB Prov:EVETTE WISDOM MD 04/11/24 Reported Medications Hydroxyzine Hcl (Hydroxyzine Hcl) 25 Mg Tab, 1 TAB PO QID PRN 02/16/24 Lactulose (Lactulose) 10 Gm/15 Ml Patricia, 30 ML PO DAILY 02/16/24 Docusate Sodium (Colace) 100 Mg Cap, 1 CAP PO BID 02/16/24 Lidocaine (Ztlido) 1.8 % Pad, 1 PATCH EX DAILY 02/16/24 Apixaban Base (ELIQUIS) 5 Mg Tab, 1 TAB PO BID 02/16/24 Escitalopram Oxalate (Lexapro) 5 Mg Tab, 1 TAB PO DAILY 02/16/24 Benzonatate (Benzonatate) 100 Mg Cap, 1 TAB PO TID 02/16/24 Cinacalcet Hydrochloride (Sensipar) 30 Mg Tab, 1 TAB PO DAILY 02/16/24 Calcitriol (Calcitriol) 0.25 Mcg Cap, 1 CAP PO DAILY 02/16/24 Sevelamer Carbonate (Renvela) 800 Mg Tab, 3 TAB PO TID 02/16/24 Gabapentin (Gabapentin) 100 Mg Cap, 1 TAB PO TID 02/16/24 Pantoprazole Sodium Sesquihydr (Protonix) 40 Mg Tab, 1 TAB PO BID 02/16/24 Senna (Senokot) 8.6 Mg Tab, 2 TAB PO BID for 15 Days, #60 01/22/24 Carvedilol (Carvedilol) 12.5 Mg Tab, 1 TAB PO BID, #180 TAB 1 Refill 01/22/24 Dicyclomine Hcl (Dicyclomine Hcl) 10 Mg Cap, 10 MG PO TIDPRN PRN for PAIN SCALE 1 THRU 6 for 30 Days, MG 01/22/24 Hydrocodone-Acetaminophen (Hydrocodone Bitartrate/AC 5-325 mg) 1 Tab Tab, 1 TAB PO Q6HP PRN for PAIN SCALE 1 THRU 6, TAB 01/22/24 Amitriptyline Hcl (Amitriptyline Hcl) 25 Mg Tab, 50 MG PO HS for 30 Days, MG 01/22/24 Aspirin (Aspir-Low) 81 Mg Tab, 81 MG PO DAILY for 30 Days, MG 01/22/24 Information Source: Patient, Emergency Med Personnel Mode of Arrival: EMS Brought in by: EMS Past Medical History PAST MEDICAL HISTORY: CAD, CHF, CKF, ESRD, HTN, NV Surgical History: CABG 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 Was a procedure done?: No CP Differential Dx Differential Diagnosis: N/A Differential Diagnosis: Other (DDX include renal disease, thyroid disease, electrolyte abnormality, increased salt intake, medications non-compliance, undiagnosed HTN, Hypertensive crisis, hypertensive urgency., drug toxicity.) X-Ray, Labs, Meds, VS Vital Signs Date Time Temp Pulse Resp B/P (MAP) Pulse Ox O2 Delivery O2 Flow Rate FiO2 05/11/24 15:30 74 18 96 Room Air* 0 21 05/11/24 14:41 221/106 05/11/24 14:13 72 05/11/24 13:39 233/103 05/11/24 12:25 70 180/152 05/11/24 12:16 77 05/11/24 12:06 238/110 05/11/24 11:27 97.6 78 24 198/104 (135) 97 05/11/24 11:17 87 Lab Test 05/11/24 15:07 05/11/24 14:48 05/11/24 13:00 Range/Units Sodium Level 137 136-145 mmol/L Potassium Level 4.0 3.5-5.1 mmol/L Chloride Level 101 98-107 mmol/L Carbon Dioxide Level 24 20-31 mmol/L Anion Gap 12 5-15 Blood Urea Nitrogen 58 H 9-23 mg/dL Creatinine 6.36 H 0.550-1.02 mg/dL Glomerular Filtration Rate Calc 7 >90 mL/min BUN/Creatinine Ratio 9.1 L 10.0-20.0 Serum Glucose 92 74-106 mg/dL Calcium Level 9.9 8.7-10.4 mg/dL Total Bilirubin 0.7 0.2-1.0 mg/dL Aspartate Amino Transferase (AST) 24 13-40 U/L Alanine Aminotransferase (ALT) 41 H 7-40 U/L Alkaline Phosphatase 134 H 46-116 U/L Total Protein 8.3 H 5.7-8.2 g/dL Albumin 4.3 3.2-4.8 g/dL Prothrombin Time 12.7 H 9.3-11.8 sec Prothrombin Time INR 1.22 H 0.9-1.15 Activated Partial Thromboplast Time 24.8 24.5-34.5 SEC Troponin I High Sensitivity 63 *H 65 *H </=34 ng/L White Blood Count 3.4 L 4.4-10.8 10^3/uL Red Blood Count 3.08 L 4.0-5.20 10^6/uL Hemoglobin 9.6 L 12.2-16.2 g/dL Hematocrit 29.4 L 36.0-46.0 % Mean Corpuscular Volume 95.5 80.0-100.0 fL Mean Corpuscular Hemoglobin 31.1 28.0-32.0 pg Mean Corpuscular Hemoglobin Concent 32.6 32.0-36.0 g/dL Red Cell Distribution Width 18.7 H 11.8-14.3 % Platelet Count 161 140-450 10^3/uL Mean Platelet Volume 7.6 6.9-10.8 fL Neutrophils (%) (Auto) 54.0 37.0-80.0 % Lymphocytes (%) (Auto) 35.5 10.0-50.0 % Monocytes (%) (Auto) 6.6 0.0-12.0 % Eosinophils (%) (Auto) 3.0 0.0-7.0 % Basophils (%) (Auto) 0.9 0.0-2.0 % Neutrophils # (Auto) 1.8 1.6-8.6 10 ^3/uL Lymphocytes # (Auto) 1.2 0.4-5.4 10 ^3/uL Monocytes # (Auto) 0.2 0-1.3 10 ^3/uL Eosinophils # (Auto) 0.1 0-0.8 10 ^3/uL Basophils # (Auto) 0 0-0.2 10 ^3/uL Nucleated Red Blood Cells 0.1 % Current Medications Medications (Trade) Dose Ordered Sig/Homer Route Start Time Stop Time Status Last Admin Nitroglycerin (Ntrostat Sublingual) 0.4 mg ONCE ONCE SL 05/11/24 11:45 05/11/24 11:46 DC 05/11/24 12:06 Labetalol HCl (Labetalol HCl) 5 mg ONCE ONCE IV 05/11/24 12:30 05/11/24 12:31 DC 05/11/24 12:25 Furosemide (Lasix Injection) 40 mg ONCE ONCE IV 05/11/24 13:00 05/11/24 13:19 DC 05/11/24 13:39 Hydralazine HCl (Apresoline Injection) 5 mg ONCE ONCE IV 05/11/24 14:30 05/11/24 14:32 DC 05/11/24 14:41 Hydralazine HCl (Apresoline Injection) 10 mg Q6HP PRN IV 05/11/24 15:00 05/11/24 20:[address] [address] Ph: [phone] DIAGNOSTIC IMAGING Diagnostic Imaging Report : [id number] Signed PATIENT: GRACIELA CRUZACCT: [id number] UNIT: [id number] : 1970 LOC: ER ROOM / BED: / AGE / SEX: 53 / F ADM STATUS: REG ER SERVICE 28 ORDERING PHYSICIAN: RICHARD CARBAJAL DO PROCEDURE(s): CXRP - CHEST PORTABLE REASON: cp ORDER NUMBER(s): [id number], ACCESSION NUMBER(s): [id number] CHEST RADIOGRAPH Indication:cp Technique: Single frontal view of the chest was obtained COMPARISON: XY CHEST PORTABLE on DOS: 04/08/24, XY CHEST PORTABLE on DOS: 03/30/24, XY CHEST XRAY 1 VIEW on DOS: 02/14/24 FINDINGS: Lines and Tubes: Median sternotomy. Right tunneled central venous catheter in satisfactory position. Lungs: Clear Pleura: Small left pleural effusion. No pneumothorax. Cardiomediastinal contours: Unremarkable Bones: Unremarkable IMPRESSION: Pulmonary vascular congestion. ATED BY: BIN HARRISON MD DICTATED DATE/TIME: 05/11/241228 SIGNED BY: BIN HARRISON MD SIGNED DATE/TIME: 05/11/241228 CC: Time of 1ST Reevaluation: 21:05 Reevaluation 1ST: Improved Patient Education/Counseling: Diagnosis, Treatment Family Education/Counseling: No Family Present Comments Patient presented with the above HPI.--hypertensive crisis----workup was initiated. patient was found with the above mentioned diagnosis. Patient was given: Hydralazine 5 mg IV, Lasix 40 mg IV, labetalol 5 mg IV, sublingual nitroglycerin, Patient ED course and VS have been stabilized. Patient has been reassessed in the ED and remained in a stable condition. Pertinent incidental findings were discussed with the patient and/or family. Patient/family voices understanding and is agreeable with plan. Patient has been observed in the ED adequate length of time to insure improvement/stability. patient was admitted to the medicine team for further evaluation and treatment of their presentation. All the reports of any imaging studies that were ordered by myself were reviewed by myself. Departure 1 Departure Time of Disposition: 12:57 Impression: Primary Impression: Chest pain Additional Impressions: Hypertensive crisis ESRD on hemodialysis Disposition: ADMITTED INPATIENT Admit to: Tele Condition: Guarded Discharged With: Self Critical Care Note Critical Care Time?: Yes (45 min-critical care time only) Heart Score Heart Score: Heart Score Response (Comments) Value History Moderate Suspicious 1 EKG Normal 0 Age 45-64 1 Risk Factors >3 or Hx ASHD 2 Troponin 1-2 x's Normal limit 1 Total 5 I personally scribed for RICHARD CARBAJAL DO ([email or web address]) on 05/11/24 at 14:47. Electronically submitted by Joni Crawford ([email or web address]). RICHARD CARBAJAL DO May 11, 2024 12:26
--- NOTE | 2024-05-11 12:32 | DVH ---
CHEST RADIOGRAPH Indication:cp Technique: Single frontal view of the chest was obtained COMPARISON: XY CHEST PORTABLE on DOS: 04/08/24, XY CHEST PORTABLE on DOS: 03/30/24, XY CHEST XRAY 1 EW on DOS: 02/14/24 FINDINGS: Lines and Tubes: Median sternotomy. Right tunneled central venous catheter in satisfactory position. Lungs: Clear Pleura: Small left pleural effusion. No pneumothorax. Cardiomediastinal contours: Unremarkable Bones: Unremarkable IMPRESSION: Pulmonary vascular congestion.
[2024-05-11 13:28] LABS: Basophils # (auto) 0 10 ^3/uL (0-0.2); Basophils % (auto) 0.9 % (0.0-2.0); Eosinophils # (auto) 0.1 10 ^3/uL (0-0.8); Hematocrit 29.4 % (36.0-46.0); Hemoglobin 9.6 g/dL (12.2-16.2); Lymphocytes # (auto) 1.2 10 ^3/uL (0.4-5.4); Lymphocytes % (auto) 35.5 % (10.0-50.0); Mean Corpuscular Hemoglobin 31.1 pg (28.0-32.0); Mean Corpuscular Hgb Conc. 32.6 g/dL (32.0-36.0); Mean Corpuscular Volume 95.5 fL (80.0-100.0); Monocytes # (auto) 0.2 10 ^3/uL (0-1.3); Monocytes % (auto) 6.6 % (0.0-12.0); Neutrophils # (auto) 1.8 10 ^3/uL (1.6-8.6); Nucleated Red Blood Cells % 0.1 %; Platelet Count (auto) 161 10^3/uL (140-450); Red Blood Cells 3.08 10^6/uL (4.0-5.20); Red Cell Distribution Width 18.7 % (11.8-14.3); White Blood Cell 3.4 10^3/uL (4.4-10.8)
[2024-05-11] MEDS: FUROSEMIDE 40 MG/4 ML VIAL IV ONE (13:39)
--- NOTE | 2024-05-11 14:23 | ECG ---
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
[2024-05-11] MEDS: hydrALAZINE HCL 20 MG/ML VL IV ONE (14:41)
[2024-05-11] MEDS ORDERED: ACETAMINOPHEN 325 MG TAB PO PRN (15:00)
[2024-05-11 15:29] LABS: INR 1.22 (0.9-1.15); Partial Thromboplastin Time 24.8 SEC (24.5-34.5); Prothrombin Time 12.7 sec (9.3-11.8)
[2024-05-11 15:30] VITALS: PULSE 74; RESP 18; O2SAT 96
[2024-05-11] MEDS ORDERED: NITROGLYCERIN 0.4 MG SL TAB SL PRN (15:30)
--- NOTE | 2024-05-11 15:31 | DVHHP2 ---
History of Present Illness Reason for Visit: Acute chest pain History of Present Illness The patient is a 53 years old female with multiple past medical history including end-stage renal disease on hemodialysis, MT, Coronary artery disease, and hypertension who presented to [facility] with complaint of acute chest pain. Patient reports he had nonspecific chest pain during dialysis session, the dialysis was stopped, and he was sent to our facility ED for further evaluation. Patient was seen and evaluated in the ED, laboratory data shows WBC 3.4, hemoglobin 9.6, hematocrit 29.4, platelets 161, blood pressure 238/110, heart rate 72, temperature 97.6 F, O2 saturation 97% on room. Patient was given IV hydralazine 10 mg x 1, [place] 10/325 mg p.o. x1, please see medication orders section in the computer. Chest x-ray revealing pulmonary vascular congestion. On my assessment, patient denied chest pain at this moment, no headache, no dizziness, no diaphoresis, no shortness of breath, no nausea, no vomiting, no fever, no chills. Patient was admitted for further evaluation and medical management. Past Medical History CAD, CHF, CKF, ESRD, HTN, MT, Pulmonary edema Past Surgical History CABG, Dialysis access, cholecystectomy Family History Reviewed, noncontributory to the management of this case. Past Social History The patient lives at home, denies smoking, alcohol or illicit drugs abuse. Review of Systems Constitutional: Yes: Weakness; No: Fever, Chills, Sweats, Malaise, Other Eyes: No: Pain, Vision change, Conjunctivae inflammation, Eyelid inflammation, Other, Redness ENT: No: Ear pain, Ear discharge, Nose pain, Nose discharge, Nose congestion, Mouth pain, Mouth swelling, Throat pain, Throat swelling, Other Respiratory: No: Cough, Dry, Shortness of breath, SOB with excertion, Wheezing, Hemoptysis, Pleuritic Pain, Sputum, Wheezing, Other Cardiovascular: Chest Pain; No: Palpitations, Orthopnea, Paroxysmal Noc. Dyspnea, Edema, Lt Headedness, Other Gastrointestinal: No: Nausea, Vomiting, Abdominal Pain, Diarrhea, Constipation, Melena, Hematochezia, Other Genitourinary: No Dysuria, No Frequency, No Incontinence, No Hematuria, No Retention, No Other Musculoskeletal: leg pain (Right); No: other, neck pain, shoulder pain, arm pain, back pain, hand pain, foot pain Skin: No: Rash, Lesions, Jaundice, Bruising, Other Neurological: No: Weakness, Numbness, Incoordination, Change in speech, Con fusion, Seizures, Other Allergies: Coded Allergies: Hydromorphone (Verified Allergy, Unknown, 01/21/24) Ibuprofen (Verified Allergy, Unknown, 01/21/24) Morphine (Verified Allergy, Unknown, 01/21/24) Medications Current Medications Medications Dose Ordered Sig/Homer Route Start Time Stop Time Status Last Admin Dose Admin Hydralazine HCl 10 mg Q6HP PRN IV 05/11/24 15:00 Carvedilol 12.5 mg Q12HR PO 05/11/24 22:00 Multivit/Ca Carb/ B Cmplx/FA/Prenat 1 tab DAILY PO 05/12/24 10:00 Sevelamer HCl 800 mg TIDWM PO 05/11/24 18:00 Apixaban 5 mg BID PO 05/11/24 22:00 Sodium Chloride 10 ml Q8HR IV 05/11/24 22:00 Ondansetron HCl 4 mg Q4HP PRN IV 05/11/24 15:00 Docusate Sodium 100 mg BIDPRN PRN PO 05/11/24 15:00 Acetaminophen 650 mg Q6HP PRN PO 05/11/24 15:00 Exam Vital Signs Vital Signs Date Time Temp Pulse Resp B/P (MAP) Pulse Ox O2 Delivery O2 Flow Rate FiO2 05/11/24 14:41 221/106 05/11/24 14:13 72 05/11/24 11:27 97.6 24 97 General Appearance: Alert, Oriented X3, Cooperative, No acute distress HEENT: Atraumatic, PERRLA, EOMI, Mucous membr. moist/pink Respiratory: Clear to auscultation, Normal air movement Cardiovascular: Regular rate, Normal S1, Normal S2, No murmurs Abdominal: Normal bowel sounds, Soft, No tenderness, No hepatospenomegaly, No masses Extremities: No clubbing, No cyanosis, No edema, Normal pulses, Other (Right leg tenderness) Skin: No rashes, No breakdown, No significant lesion Neuro: Normal speech, Normal tone, Sensation intact, Cranial nerves 3-12 NL, Reflexes 2+, Other (Generalized weakness) Psych/Mental Status: Mental status NL, Mood NL Labs/Xrays Labs Test 05/11/24 15:07 05/11/24 14:48 05/11/24 13:00 Range/Units Prothrombin Time 12.7 H 9.3-11.8 sec Prothrombin Time INR 1.22 H 0.9-1.15 Activated Partial Thromboplast Time 24.8 24.5-34.5 SEC White Blood Count 3.4 L 4.4-10.8 10^3/uL Red Blood Count 3.08 L 4.0-5.20 10^6/uL Hemoglobin 9.6 L 12.2-16.2 g/dL Hematocrit 29.4 L 36.0-46.0 % Mean Corpuscular Volume 95.5 80.0-100.0 fL Mean Corpuscular Hemoglobin 31.1 28.0-32.0 pg Mean Corpuscular Hemoglobin Concent 32.6 32.0-36.0 g/dL Red Cell Distribution Width 18.7 H 11.8-14.3 % Platelet Count 161 140-450 10^3/uL Mean Platelet Volume 7.6 6.9-10.8 fL Neutrophils (%) (Auto) 54.0 37.0-80.0 % Lymphocytes (%) (Auto) 35.5 10.0-50.0 % Monocytes (%) (Auto) 6.6 0.0-12.0 % Eosinophils (%) (Auto) 3.0 0.0-7.0 % Basophils (%) (Auto) 0.9 0.0-2.0 % Neutrophils # (Auto) 1.8 1.6-8.6 10 ^3/uL Lymphocytes # (Auto) 1.2 0.4-5.4 10 ^3/uL Monocytes # (Auto) 0.2 0-1.3 10 ^3/uL Eosinophils # (Auto) 0.1 0-0.8 10 ^3/uL Basophils # (Auto) 0 0-0.2 10 ^3/uL Nucleated Red Blood Cells 0.1 % PATIENT: GRACIELA CRUZACCT: [id number] UNIT: [id number] : 1970 LOC: ER ROOM / BED: / AGE / SEX: 53 / F ADM STATUS: REG ER SERVICE 1129 ORDERING PHYSICIAN: RICHARD CARBAJAL DO PROCEDURE(s): CXRP - CHEST PORTABLE REASON: cp ORDER NUMBER(s): [id number], ACCESSION NUMBER(s): [id number] CHEST RADIOGRAPH Indication:cp Technique: Single frontal view of the chest was obtained COMPARISON: XY CHEST PORTABLE on DOS: 04/08/24, XY CHEST PORTABLE on DOS: 03/30/24, XY CHEST XRAY 1 VIEW on DOS: 02/14/24 FINDINGS: Lines and Tubes: Median sternotomy. Right tunneled central venous catheter in satisfactory position. Lungs: Clear Pleura: Small left pleural effusion. No pneumothorax. Cardiomediastinal contours: Unremarkable Bones: Unremarkable IMPRESSION: Pulmonary vascular congestion. Assessment/Plan Assessment/Plan Acute chest pain Hypertensive crisis ESRD on hemodialysis Generalized weakness Plan 1. Admit to telemetry unit 2. Breathing treatment 3. Pain control management 4. Management of fluids and electrolytes 5. Consultation for hospitalist/nephrology 6. Diagnostic tests chest x-ray 7. DVT prophylaxis on Eliquis 8. Repeat labs CBC, CMP in a.m. 9. Continue with current medical management 10. Treatment plan discussed with patient and RN. Patient verbalized understanding. Plan discussed with: Patient, Other (RN) My Orders Orders - NOELLE MONTESINOS DNP Procedure Category Date Status Time *Dr. [facility] CONS 05/11/24 Transmitted -[place] 14:52 Hydralazine Injection PHA 05/11/24 In Process (Apresoline Inject 15:00 Carvedilol Tablet PHA 05/11/24 In Process (Coreg Tablet) 22:00 B-Complex W/ C & PHA 05/12/24 In Process Folic Tablet 10:00 Sevelamer (Renagel) PHA 05/11/24 In Process 18:00 Apixaban (Eliquis) PHA 05/11/24 In Process 22:00 Allergies DONATO 05/11/24 In Process 14:52 Code Status CODE 05/11/24 Transmitted 14:52 Renal DIET 05/11/24 Transmitted Standard(2gna,3gk,Lopho) Dinner Sodium Chloride Lock PHA 05/11/24 In Process (Saline Lock Ns) 22:00 Oxygen Per Hour RT 05/11/24 Transmitted 14:52 Ondansetron Hcl PHA 05/11/24 In Process (Zofran) 15:00 Docusate Sodium PHA 11/12/24 In Process Capsule (Colace 15:00 Complete Blood Count LAB 05/12/24 Verified 04:00 Comprehensive LAB 05/12/24 Verified Metabolic Panel 04:00 Condition: Serious [facility] 05/11/24 In Process 14:52 Acetaminophen Tablet [facility] 05/11/24 In Process (Tylenol Tablet) 15:00 Bedrest With Bathroom [facility] 05/11/24 In Process Privileg 14:52 Sequential [facility] 05/11/24 In Process Compression Device Admit ADMIT 05/11/24 Transmitted 15:30 Nitroglycerin [facility] 05/11/24 Transmitted Sublingual (Ntrostat 15:30 Notify Md Of Changes [facility] 05/11/24 Transmitted From Base 15:30 Director Child For [facility] 05/11/24 Transmitted 24 Hours 15:30 Emergency Dysrhythmia [facility] 05/11/24 Transmitted Protocol 15:30 Rhythm Strips Once [facility] 05/11/24 Transmitted Every Shift 15:30 Oxygen By Nasal RT 05/11/24 Transmitted Cannula 15:30 Problem List: (1) Acute chest pain (2) Hypertensive crisis (3) ESRD on hemodialysis (4) Generalized weakness Date of Service: May 11, 2024 Billing Provider: NOELLE MONTESINOS DNP Common Visit Codes: [id number] INP/OBS CARE (HIGH) NOELLE MONTESINOS DNP May 11, 2024 15:31
[2024-05-11 15:44] LABS: Alanine Aminotransferase 41 U/L (7-40); Albumin 4.3 g/dL (3.2-4.8); Alkaline Phosphatase 134 U/L (46-116); Anion Gap 12 (5-15); Aspartate Aminotransferase 24 U/L (13-40); BUN/Creatinine Ratio 9.1 (10.0-20.0); Blood Urea Nitrogen 58 mg/dL (9-23); Calcium 9.9 mg/dL (8.7-10.4); Carbon Dioxide 24 mmol/L (20-31); Chloride 101 mmol/L (98-107); Glucose 92 mg/dL (74-106); Sodium 137 mmol/L (136-145)
[2024-05-11 15:45] LABS: Bilirubin, Total 0.7 mg/dL (0.2-1.0); Total Protein 8.3 g/dL (5.7-8.2)
[2024-05-11] MEDS: amLODIPine BESYLATE 5 MG TAB PO ONE (15:54)
[2024-05-11] MEDS: HYDROcodone-ACET 5/325MG TAB PO ONE (15:54)
[2024-05-11] MEDS: SEVELAMER 800 MG TAB PO SCH (18:12)
[2024-05-11] MEDS: hydrALAZINE HCL 20 MG/ML VL IV PRN (20:12)
--- NOTE | 2024-05-11 20:24 | ECG ---
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
[2024-05-11] MEDS: CARVEDILOL 12.5 MG TAB PO SCH (22:00)
[2024-05-11] MEDS: APIXABAN 5 MG TAB PO SCH (22:14)
[2024-05-11] MEDS: SODIUM CHLOR 0.9% PF (SALINE LOCK) 10ML VIAL/SYR IV SCH (22:15)
[2024-05-11 22:23] VITALS: BP 141/69; PULSE 75; RESP 18; TEMP 98.8; O2SAT 96
[2024-05-12] VITALS (8 sets, daily range): BP systolic 141–168; BP diastolic 78–91; PULSE 75–88; RESP 18–20; TEMP 97.8–98.8; O2SAT 93–99
[2024-05-12 05:57] LABS: Urine Bacteria MANY /hpf (None Seen); Urine Blood 1+ /uL (Negative); Urine Clarity Turbid (Clear); Urine Color Colorless (Yellow); Urine Protein, UAD 3+ (Negative); Urine Specific Gravity 1.012 (1.001-1.035); Urine Urobilinogen Normal (Negative); Urine WBC 5 /hpf (0 - 5); Urine pH 8.5 (5.0-9.0)
[2024-05-12] MEDS: HYDROcodone-ACET 10/325MG TAB PO PRN (06:04)
[2024-05-12 06:23] LABS: Alanine Aminotransferase 26 U/L (7-40); Albumin 3.3 g/dL (3.2-4.8); Alkaline Phosphatase 104 U/L (46-116); Anion Gap 12 (5-15); Aspartate Aminotransferase 20 U/L (13-40); BUN/Creatinine Ratio 6.8 (10.0-20.0); Bilirubin, Total 0.4 mg/dL (0.2-1.0); Calcium 8.8 mg/dL (8.7-10.4); Carbon Dioxide 20 mmol/L (20-31); Chloride 104 mmol/L (98-107); Glucose 77 mg/dL (74-106); Potassium 4.3 mmol/L (3.5-5.1); Sodium 136 mmol/L (136-145); Total Protein 6.7 g/dL (5.7-8.2)
[2024-05-12 06:25] LABS: Blood Urea Nitrogen 48 mg/dL (9-23)
[2024-05-12] MEDS ORDERED: hydrALAZINE HCL 20 MG/ML VL IV PRN (08:30)
[2024-05-12 08:34] LABS: Basophils # (auto) 0.1 10 ^3/uL (0-0.2); Basophils % (auto) 1.8 % (0.0-2.0); Eosinophils # (auto) 0.1 10 ^3/uL (0-0.8); Hemoglobin 10.5 g/dL (12.2-16.2); Lymphocytes # (auto) 1.1 10 ^3/uL (0.4-5.4); Lymphocytes % (auto) 32.2 % (10.0-50.0); Mean Corpuscular Hgb Conc. 31.9 g/dL (32.0-36.0); Mean Corpuscular Volume 94.2 fL (80.0-100.0); Monocytes # (auto) 0.2 10 ^3/uL (0-1.3); Monocytes % (auto) 6.3 % (0.0-12.0); Neutrophils # (auto) 1.9 10 ^3/uL (1.6-8.6); Neutrophils % (auto) 55.7 % (37.0-80.0); Nucleated Red Blood Cells % 0.1 %; Platelet Count (auto) 177 10^3/uL (140-450); Red Cell Distribution Width 18.9 % (11.8-14.3); White Blood Cell 3.5 10^3/uL (4.4-10.8)
--- NOTE | 2024-05-12 08:57 | ECG ---
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
[2024-05-12] MEDS: ASPirin 81 mg TAB PO SCH (09:08)
[2024-05-12] MEDS: B-COMPLEX W/ C & FOLIC ACID(NEPHROVITE TAB) PO SCH (09:08)
[2024-05-12] MEDS: amLODIPine BESYLATE 5 MG TAB PO SCH (09:09)
--- NOTE | 2024-05-12 15:23 | DVHINCON2 ---
Date of service: May 12, 2024 Referring Physician Lidia Arreaga NP Reason for Consultation End-stage renal disease History of Present Illness This is a 53-year-old female with history of end-stage renal disease on hemodialysis, hypertension, coronary artery disease status post CABG who was referred to the emergency room from the dialysis facility as her blood pressure was running high. Initial evaluation in the emergency room showed that the systolic blood pressure was close to 200. Patient admitted with impression of hypertensive urgency. Nephrology consulted for continuation of dialysis. Patient is last dialysis was on Friday. At the time of my examination no shortness of breath. Past Medical History End-stage kidney disease on hemodialysis Hypertension Coronary artery disease Past Surgical History Status post CABG Family History: Cardiovascular disease G8 MOTHER Family History No family history of kidney disease Social History No active history of smoking, alcohol or drug abuse Allergies: Coded Allergies: Hydromorphone (Verified Allergy, Unknown, 01/21/24) Ibuprofen (Verified Allergy, Unknown, 01/21/24) Morphine (Verified Allergy, Unknown, 01/21/24) Home Meds Active Scripts Clopidogrel Bisulfate (Plavix) 75 Mg Tab, 75 MG PO DAILY for 60 Days, #60 TAB Prov:EVETTE WISDOM MD 04/11/24 Nifedipine (Nifedipine Er) 30 Mg Tab, 30 MG PO QPM for 60 Days, #60 TAB Prov:EVETTE WISDOM MD 04/11/24 Reported Medications Atorvastatin Calcium (Lipitor) 20 Mg Tab, 1 TAB PO DAILY for 30 Days, #30 05/12/24 Losartan Potassium (Losartan Potassium) 100 Mg Tab, 1 TAB PO DAILY for 90 Days, #90 05/12/24 Spironolactone (Spironolactone) 25 Mg Tab, 1 TAB PO DAILY for 90 Days, #90 05/12/24 Ergocalciferol (Vitamin D (Ergocalciferol) 50,000 Unit Cap, 1 CAP PO QWEEKLY for 49 Days, #7 05/12/24 Furosemide (Furosemide) 40 Mg Tab, 1 TAB PO DAILY for 30 Days, #30 05/12/24 Amlodipine Besylate (Amlodipine Besylate) 5 Mg Tab, 1 TAB PO BID for 30 Days, #60 05/12/24 Calcitriol (Calcitriol) 0.5 Mcg Cap, 1 CAP PO BID for 30 Days, #60 05/12/24 Hydroxyzine Hcl (Hydroxyzine Hcl) 25 Mg Tab, 1 TAB PO QID PRN 02/16/24 Lactulose (Lactulose) 10 Gm/15 Ml Patricia, 30 ML PO DAILY 02/16/24 Docusate Sodium (Colace) 100 Mg Cap, 1 CAP PO BID 02/16/24 Lidocaine (Ztlido) 1.8 % Pad, 1 PATCH EX DAILY 02/16/24 Apixaban Base (ELIQUIS) 5 Mg Tab, 1 TAB PO BID for 30 Days, #30 02/16/24 Escitalopram Oxalate (Lexapro) 5 Mg Tab, 1 TAB PO DAILY 02/16/24 Benzonatate (Benzonatate) 100 Mg Cap, 1 TAB PO TID 02/16/24 Cinacalcet Hydrochloride (Sensipar) 30 Mg Tab, 1 TAB PO DAILY for 30 Days, #30 02/16/24 Sevelamer Carbonate (Renvela) 800 Mg Tab, 3 TAB PO TID for 30 Days, #270 02/16/24 Gabapentin (Gabapentin) 100 Mg Cap, 1 TAB PO DAILY for 90 Days, #90 02/16/24 Pantoprazole Sodium Sesquihydr (Protonix) 40 Mg Tab, 1 TAB PO BID for 30 Days, #60 02/16/24 Senna (Senokot) 8.6 Mg Tab, 2 TAB PO BID for 15 Days, #60 01/22/24 Carvedilol (Carvedilol) 12.5 Mg Tab, 1 TAB PO BID for 60 Days 01/22/24 Dicyclomine Hcl (Dicyclomine Hcl) 10 Mg Cap, 10 MG PO TIDPRN PRN for PAIN SCALE 1 THRU 6 for 30 Days, MG 01/22/24 Hydrocodone-Acetaminophen (Hydrocodone Bitartrate/AC 5-325 mg) 1 Tab Tab, 1 TAB PO Q6HP PRN for PAIN SCALE 1 THRU 6, TAB 01/22/24 Amitriptyline Hcl (Amitriptyline Hcl) 25 Mg Tab, 50 MG PO HS for 30 Days, #30 01/22/24 Aspirin (Aspir-Low) 81 Mg Tab, 1 TAB PO DAILY for 30 Days, #30 01/22/24 Discontinued Reported Medications Calcitriol (Calcitriol) 0.25 Mcg Cap, 1 CAP PO DAILY 02/16/24 Current Medications Current Medications Medications (Trade) Dose Ordered Sig/Homer Route PRN Reason Start Time Stop Time Status Last Admin Carvedilol (Coreg Tablet) 12.5 mg Q12HR PO 05/11/24 22:00 05/12/24 09:08 Multivit/Ca Carb/ B Cmplx/FA/Prenat (Nephro-Berta Tablet) 1 tab DAILY PO 05/12/24 10:00 05/12/24 09:08 Sevelamer HCl (Renagel) 800 mg TIDWM PO 05/11/24 18:00 05/12/24 12:19 Apixaban (Eliquis) 5 mg BID PO 05/11/24 22:00 05/12/24 09:09 Sodium Chloride (Saline Lock Ns) 10 ml Q8HR IV 05/11/24 22:00 05/12/24 14:00 Nitroglycerin (Ntrostat Sublingual) 0.4 mg Q5MINP PRN SL FOR CHEST PAIN 05/11/24 15:30 Acetaminophen/ Hydrocodone Bitart ([place] 10/325MG Tab) 1 tab Q6HP PRN PO MODERATE PAIN (4-6 PAIN SCALE) 05/11/24 16:30 05/12/24 06:04 Amlodipine Besylate (Norvasc Tablet) 10 mg DAILY PO 05/12/24 10:00 05/12/24 09:09 Aspirin 81 mg DAILY PO 05/12/24 10:00 05/12/24 09:08 Atorvastatin Calcium (Lipitor) 40 mg HS PO 05/12/24 22:00 Hydralazine HCl (Apresoline Injection) 20 mg Q6HP PRN IV SBP>150 05/12/24 08:30 05/12/24 14:05 DC Hydralazine HCl (Apresoline Injection) 10 mg Q6HP PRN IV SBP>150 05/12/24 14:15 Nifedipine (Procardia Xl (Time-Release)) 30 mg QPM PO 05/12/24 18:00 Mupirocin (Bactroban 2% Ointment) 1 applic BID EACHNOSTRI 05/12/24 22:00 05/17/24 21:59 Review of Systems 12 point review of systems negative except as stated in the HPI. 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 Extremities: No edema Labs/Diagnostic Data Labs Test 05/12/24 08:00 05/12/24 05:32 05/12/24 05:10 05/11/24 16:45 Range/Units White Blood Count 3.5 L 4.4-10.8 10^3/uL Red Blood Count 3.50 L 4.0-5.20 10^6/uL Hemoglobin 10.5 L 12.2-16.2 g/dL Hematocrit 33.0 #L 36.0-46.0 % Mean Corpuscular Volume 94.2 80.0-100.0 fL Mean Corpuscular Hemoglobin 30.0 28.0-32.0 pg Mean Corpuscular Hemoglobin Concent 31.9 L 32.0-36.0 g/dL Red Cell Distribution Width 18.9 H 11.8-14.3 % Platelet Count 177 140-450 10^3/uL Mean Platelet Volume 7.9 6.9-10.8 fL Neutrophils (%) (Auto) 55.7 37.0-80.0 % Lymphocytes (%) (Auto) 32.2 10.0-50.0 % Monocytes (%) (Auto) 6.3 0.0-12.0 % Eosinophils (%) (Auto) 4.0 0.0-7.0 % Basophils (%) (Auto) 1.8 0.0-2.0 % Neutrophils # (Auto) 1.9 1.6-8.6 10 ^3/uL Lymphocytes # (Auto) 1.1 0.4-5.4 10 ^3/uL Monocytes # (Auto) 0.2 0-1.3 10 ^3/uL Eosinophils # (Auto) 0.1 0-0.8 10 ^3/uL Basophils # (Auto) 0.1 0-0.2 10 ^3/uL Nucleated Red Blood Cells 0.1 % Sodium Level 136 136-145 mmol/L Potassium Level 4.3 3.5-5.1 mmol/L Chloride Level 104 98-107 mmol/L Carbon Dioxide Level 20 20-31 mmol/L Anion Gap 12 5-15 Blood Urea Nitrogen 48 #H 9-23 mg/dL Creatinine 7.03 H 0.550-1.02 mg/dL Glomerular Filtration Rate Calc 6 >90 mL/min BUN/Creatinine Ratio 6.8 L 10.0-20.0 Serum Glucose 77 74-106 mg/dL Calcium Level 8.8 8.7-10.4 mg/dL Total Bilirubin 0.4 0.2-1.0 mg/dL Aspartate Amino Transferase (AST) 20 13-40 U/L Alanine Aminotransferase (ALT) 26 7-40 U/L Alkaline Phosphatase 104 46-116 U/L Total Protein 6.7 5.7-8.2 g/dL Albumin 3.3 3.2-4.8 g/dL Urine Color Colorless Yellow Urine Clarity Turbid H Clear Urine pH 8.5 5.0-9.0 Urine Specific [place] 1.012 1.001-1.035 Urine Protein 3+ H Negative Urine Ketones Negative Negative Urine Blood 1+ H Negative /uL Urine Nitrite Negative Negative Urine Bilirubin Negative Negative Urine Urobilinogen Normal Negative mg/dL Urine Leukocyte Esterase Negative Negative /uL Urine RBC 15 0 - 4 /hpf Urine WBC 5 0 - 5 /hpf Urine Squamous Epithelial Cells Many <5 /hpf Urine Bacteria Many H None Seen /hpf Urine Glucose 1+ H Normal mg/dL Troponin I High Sensitivity 55 *H </=34 ng/L Test 05/11/24 14:48 Range/Units Prothrombin Time 12.7 H 9.3-11.8 sec Prothrombin Time INR 1.22 H 0.9-1.15 Activated Partial Thromboplast Time 24.8 24.5-34.5 SEC Microbiology Date/Time Source Procedure Growth Status 05/12/24 05:10 Nose MRSA Screen - Final Methicillin Resistant S.aureus Complete Assessment End-stage kidney disease on hemodialysis Accelerated hypertension History of coronary artery disease status post CABG Anemia secondary to Chronic kidney disease Noncompliance Plan/Recommendation Hemodialysis tomorrow. Resume home medications for blood pressure. Stop amlodipine. Continue with nifedipine. Increase nifedipine dosage to 60 mg q.h.s.. Plan discussed with: Patient JEANETTE ZELAYA MD May 12, 2024 15:23
[2024-05-12] MEDS ORDERED: CALC0.5C PO (16:08)
[2024-05-12] MEDS ORDERED: NIFEdipine ER 30 MG TAB PO SCH (18:00)
[2024-05-12] MEDS: NIFEdipine ER 30 MG TAB PO SCH (18:11)
--- NOTE | 2024-05-12 21:03 | DVHPNRES ---
Progress Note Date Seen: May 12, 2024 Resident Creating Document: SUSANA TRUJILLO RESWILLIE Has the PT tested + for MRSA If YES, has PT been informed?: No Medical Necessity Reason Pt with a Central, PICC or Fol: No Subjective Review of Systems The patient is a 53-year-old female with a past medical history including end- stage renal disease on hemodialysis, [place], coronary artery disease, and hypertension who presented to [facility] with a complaint of acute chest pain. The patient reported nonspecific chest pain during a dialysis session, which led to the session being stopped and her being sent to the ED for further evaluation. She denied chest pain at the moment, as well as headache, dizziness, diaphoresis, shortness of breath, nausea, vomiting, fever, and chills. The patient was admitted for further evaluation and medical management. PMHx: CAD, CKF, ESRD, HTN, depression, DM PSHx: CABG, dialysis access, cholecystectomy Family History: Noncontributory Social History: Lives at home with cousin, ex-smoker with a 30 pack-year history, denies alcohol and drug use Home Medication: Amlodipine, apixaban, aspirin, calcitriol, budesonide, carvedilol, cinacalcet, clopidogrel, docusate, escitalopram, gabapentin, nifedipine, cefepime Allergic History: Hydromorphone, ibuprofen, and morphine The patient was seen and evaluated in the ED. Physical examination was unremarkable. Laboratory data showed WBC 3.4, hemoglobin 9.6, hematocrit 29.4, platelets 161, blood pressure 238/110, heart rate 72, temperature 97.6F, and O2 saturation 97% on room air. The patient was given IV hydralazine 10 mg x 1 and [place] 10/325 mg p.o. x1. Chest X-ray revealed pulmonary vascular congestion. The patient was seen and examined at the bedside. She was feeling better since admission but still had mild chest pain. Patient reports: No new complaints Changes from previous H/P or p: No Changes Objective vital signs Vital Sign Date Time Temp Pulse Resp B/P (MAP) Pulse Ox O2 Delivery O2 Flow Rate FiO2 05/12/24 20:12 88 18 98 Nasal Cannula* 2 28 05/12/24 18:11 150/78 05/12/24 16:45 98.0 98.0 medications Current Medications Medications Dose Ordered Sig/Homer Route Start Time Stop Time Status Last Admin Dose Admin Carvedilol 12.5 mg Q12HR PO 05/11/24 22:00 05/12/24 09:08 12.5 MG Multivit/Ca Carb/ B Cmplx/FA/Prenat 1 tab DAILY PO 05/12/24 10:00 05/12/24 09:08 1 TAB Sevelamer HCl 800 mg TIDWM PO 05/11/24 18:00 05/12/24 18:11 800 MG Apixaban 5 mg BID PO 05/11/24 22:00 05/12/24 09:09 5 MG Sodium Chloride 10 ml Q8HR IV 05/11/24 22:00 05/12/24 14:00 10 ML Ondansetron HCl 4 mg Q4HP PRN IV 05/11/24 15:00 Docusate Sodium 100 mg BIDPRN PRN PO 05/11/24 15:00 Acetaminophen 650 mg Q6HP PRN PO 05/11/24 15:00 Nitroglycerin 0.4 mg Q5MINP PRN SL 05/11/24 15:30 Acetaminophen/ Hydrocodone Bitart 1 tab Q6HP PRN PO 05/11/24 16:30 05/12/24 06:04 1 TAB Aspirin 81 mg DAILY PO 05/12/24 10:00 05/12/24 09:08 81 MG Atorvastatin Calcium 40 mg HS PO 05/12/24 22:00 Hydralazine HCl 10 mg Q6HP PRN IV 05/12/24 14:15 Mupirocin 1 applic BID EACHNOSTRI 05/12/24 22:00 05/17/24 21:59 Nifedipine 60 mg QPM PO 05/12/24 18:00 05/12/24 18:11 60 MG Examination General Appearance: Alert, Oriented X3, Cooperative, No acute distress HEENT: Atraumatic, PERRLA, EOMI, Mucous membrane moist/pink Respiratory: Clear to auscultation, Normal air movement Cardiovascular: Regular rate, Normal S1, Normal S2, No murmurs, no chest wall tenderness Abdominal: Normal bowel sounds, Soft, No tenderness, No hepatospenomegaly, No masses Extremities: No clubbing, No cyanosis, No edema, Normal pulses, No tenderness/swelling Skin: No rashes, No breakdown, No significant lesion laboratory and microbiology Laboratory Tests 05/12/24 08:00 05/12/24 05:32 Test 05/12/24 05:32 Range/Units Serum Glucose 77 74-106 mg/dL Microbiology Date/Time Source Procedure Growth Status 05/12/24 05:10 Nose MRSA Screen - Final Methicillin Resistant S.aureus Complete Labs and/or images reviewed: Labs reviewed by me, Image(s) reviewed by me Problem List/Assessment/Plan Problem List/Assessment/Plan Chest likely due to NSTEMI NSTEMI likely type 2 Hypertensive emergency Possible Acute on chronic diastolic heart failure Echocardiogram from 01/22/2024 shows EF 65% and grade 1 diastolic dysfunction Chest x-ray shows pulmonary vascular congestion with cephalization of pulmonary vessels Troponin I is raised, downtrending Aspirin and atorvastatin Resume home medication including carvedilol, amlodipine and nifedipine Injection hydralazine 10 mg q.6 hours as needed Cardiology on the board Telemetry ESRD, on maintenance hemodialysis Nephrology on the board, planned for hemodialysis for tomorrow Depression Continue home medication Abnormal urinalysis, clinically insignificant DVT prophylaxis Apixaban b.i.d. Code status Full Code Stress ulcer prevention Protonix Case discussed with Dr. Aldana Plan discussed with: Patient, Other (RN) My Orders My Orders Orders - SUSANA TRUJILLO RESDIPAYTON Procedure Category Date Status Time Aspirin Tablet PHA 05/12/24 In Process 10:00 Atorvastatin (Lipitor) PHA 05/12/24 In Process 22:00 Cover Wound With Foam DONATO 05/12/24 In Process Dressing 10:40 Hydralazine Injection PHA 05/12/24 In Process (Apresoline Inject 14:15 Mupirocin 2% Oint PHA 05/12/24 In Process Mrsa Nares (Bactroban 22:00 * Cardiology Consult CONS 05/12/24 Transmitted 20:17 Date of Service: May 12, 2024 Billing Provider: EVETTE WISDOM MD Common Visit Codes: [id number] INP/OBS CARE(HIGH) SUSANA TRUJILLO RESDIENT May 12, 2024 21:03 EVETTE WISDOM MD May 13, 2024 19:06
[2024-05-12] MEDS: ATORVASTATIN 20 MG TAB PO SCH (21:28)
[2024-05-12] MEDS: MUPIROCIN 2% OINT 15gm or 22gm FOR MRSA NARES EACHNOSTRI SCH (21:31)
[2024-05-12] MEDS: ONDANSETRON HCL 4 MG/2 ML VIAL IV PRN (22:02)
[2024-05-12] MEDS ORDERED: diphenhdrAMINE HCL 50 MG/1 ML VL IM ONE (22:30)
[2024-05-12] MEDS: diphenhdrAMINE HCL 50 MG/1 ML VL IV ONE (22:50)
[2024-05-13] VITALS (9 sets, daily range): BP systolic 135–192; BP diastolic 72–94; PULSE 67–82; RESP 18–20; TEMP 96.9–98.2; O2SAT 91–97
[2024-05-13 05:40] LABS: Basophils # (auto) 0 10 ^3/uL (0-0.2); Basophils % (auto) 0.8 % (0.0-2.0); Eosinophils # (auto) 0.2 10 ^3/uL (0-0.8); Eosinophils % (auto) 4.7 % (0.0-7.0); Hematocrit 33.9 % (36.0-46.0); Hemoglobin 10.8 g/dL (12.2-16.2); Lymphocytes # (auto) 1.6 10 ^3/uL (0.4-5.4); Lymphocytes % (auto) 41.6 % (10.0-50.0); Mean Corpuscular Hemoglobin 30.2 pg (28.0-32.0); Mean Corpuscular Hgb Conc. 31.9 g/dL (32.0-36.0); Mean Corpuscular Volume 94.9 fL (80.0-100.0); Monocytes # (auto) 0.3 10 ^3/uL (0-1.3); Monocytes % (auto) 8.1 % (0.0-12.0); Neutrophils # (auto) 1.7 10 ^3/uL (1.6-8.6); Neutrophils % (auto) 44.8 % (37.0-80.0); Nucleated Red Blood Cells % 0.1 %; Platelet Count (auto) 174 10^3/uL (140-450); Red Blood Cells 3.58 10^6/uL (4.0-5.20); Red Cell Distribution Width 18.5 % (11.8-14.3); White Blood Cell 3.8 10^3/uL (4.4-10.8)
[2024-05-13] MEDS: SODIUM CHL 0.9% 1000 ML BAG XX ONE (07:00)
[2024-05-13 09:27] LABS: Hepatitis B Surface Antigen Negative (Negative)
[2024-05-13 09:48] LABS: Hepatitis C Antibody Negative (Negative)
[2024-05-13] MEDS: hydrALAZINE HCL 20 MG/ML VL IV PRN (15:27)
--- NOTE | 2024-05-13 16:31 | DVHPN2 ---
Progress Note - Dictate Date Seen: May 13, 2024 Has the PT tested + for MRSA If YES, has PT been informed?: No Medical Necessity Reason Pt with a Central, PICC or Fol: No Subjective HD today vital signs Vital Sign Date Time Temp Pulse Resp B/P (MAP) Pulse Ox O2 Delivery O2 Flow Rate FiO2 05/13/24 16:20 159/83 (108) 05/13/24 16:03 98.2 67 18 96 98.2 05/13/24 08:00 Nasal Cannula* 2 28 Total Intake and Output 05/12/24 05/12/24 05/13/24 15:00 23:00 07:00 Intake Total 1000 ml 200 ml Balance 1000 ml 200 ml medications Current Medications Medications Dose Ordered Sig/Homer Route Start Time Stop Time Status Last Admin Dose Admin Carvedilol 12.5 mg Q12HR PO 05/11/24 22:00 05/13/24 12:27 12.5 MG Multivit/Ca Carb/ B Cmplx/FA/Prenat 1 tab DAILY PO 05/12/24 10:00 05/13/24 12:26 1 TAB Sevelamer HCl 800 mg TIDWM PO 05/11/24 18:00 05/13/24 12:27 800 MG Apixaban 5 mg BID PO 05/11/24 22:00 05/13/24 12:27 5 MG Sodium Chloride 10 ml Q8HR IV 05/11/24 22:00 05/13/24 14:00 10 ML Docusate Sodium 100 mg BIDPRN PRN PO 05/11/24 15:00 Acetaminophen 650 mg Q6HP PRN PO 05/11/24 15:00 Nitroglycerin 0.4 mg Q5MINP PRN SL 05/11/24 15:30 Acetaminophen/ Hydrocodone Bitart 1 tab Q6HP PRN PO 05/11/24 16:30 05/12/24 21:32 1 TAB Aspirin 81 mg DAILY PO 05/12/24 10:00 05/13/24 12:27 81 MG Atorvastatin Calcium 40 mg HS PO 05/12/24 22:00 05/12/24 21:28 40 MG Hydralazine HCl 10 mg Q6HP PRN IV 05/12/24 14:15 05/13/24 15:27 10 MG Mupirocin 1 applic BID EACHNOSTRI 05/12/24 22:00 05/17/24 21:59 05/12/24 21:31 1 APPLIC Nifedipine 60 mg QPM PO 05/12/24 18:00 05/12/24 18:11 60 MG objective Awake alert oriented x3 HEENT: Normocephalic, no JVD Lungs: Bilateral good air entry CVS: S1, S2 regular rate rhythm Abdomen: Soft, 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 BP is stable Stable for dc from renal standpoint Plan discussed with: Patient JEANETTE ZELAYA MD May 13, 2024 16:31
[2024-05-13] MEDS: GABAPENTIN 300 MG CAP PO ONE (16:45)
--- NOTE | 2024-05-13 18:39 | DVHPNRES ---
Progress Note Date Seen: May 13, 2024 Resident Creating Document: SUSANA TRUJILLO MANJIT Has the PT tested + for MRSA If YES, has PT been informed?: No Medical Necessity Reason Pt with a Central, PICC or Fol: No Subjective Review of Systems Patient seen and examined at the bedside. Patient still complaining of mild chest pain. Patient reports: No new complaints Changes from previous H/P or p: No Changes Objective vital signs Vital Sign Date Time Temp Pulse Resp B/P (MAP) Pulse Ox O2 Delivery O2 Flow Rate FiO2 05/13/24 16:20 159/83 (108) 05/13/24 16:03 98.2 67 18 96 98.2 05/13/24 08:00 Nasal Cannula* 2 28 Total Intake and Output 05/12/24 05/12/24 05/13/24 15:00 23:00 07:00 Intake Total 1000 ml 200 ml Balance 1000 ml 200 ml medications Current Medications Medications Dose Ordered Sig/Homer Route Start Time Stop Time Status Last Admin Dose Admin Carvedilol 12.5 mg Q12HR PO 05/11/24 22:00 05/13/24 12:27 12.5 MG Multivit/Ca Carb/ B Cmplx/FA/Prenat 1 tab DAILY PO 05/12/24 10:00 05/13/24 12:26 1 TAB Sevelamer HCl 800 mg TIDWM PO 05/11/24 18:00 05/13/24 12:27 800 MG Apixaban 5 mg BID PO 05/11/24 22:00 05/13/24 12:27 5 MG Sodium Chloride 10 ml Q8HR IV 05/11/24 22:00 05/13/24 14:00 10 ML Docusate Sodium 100 mg BIDPRN PRN PO 05/11/24 15:00 Acetaminophen 650 mg Q6HP PRN PO 05/11/24 15:00 Nitroglycerin 0.4 mg Q5MINP PRN SL 05/11/24 15:30 Acetaminophen/ Hydrocodone Bitart 1 tab Q6HP PRN PO 05/11/24 16:30 05/13/24 16:49 1 TAB Aspirin 81 mg DAILY PO 05/12/24 10:00 05/13/24 12:27 81 MG Atorvastatin Calcium 40 mg HS PO 05/12/24 22:00 05/12/24 21:28 40 MG Hydralazine HCl 10 mg Q6HP PRN IV 05/12/24 14:15 05/13/24 15:27 10 MG Mupirocin 1 applic BID EACHNOSTRI 05/12/24 22:00 05/17/24 21:59 05/12/24 21:31 1 APPLIC Nifedipine 60 mg QPM PO 05/12/24 18:00 05/12/24 18:11 60 MG Gabapentin 300 mg QHSP PO 05/14/24 22:00 Examination General Appearance: Alert, Oriented X3, Cooperative, No acute distress HEENT: Atraumatic, PERRLA, EOMI, Mucous membrane moist/pink Respiratory: Clear to auscultation, Normal air movement Cardiovascular: Regular rate, Normal S1, Normal S2, No murmurs, no chest wall tenderness Abdominal: Normal bowel sounds, Soft, No tenderness, No hepatospenomegaly, No masses Extremities: No clubbing, No cyanosis, No edema, Normal pulses, No tenderness/swelling Skin: No rashes, No breakdown, No significant lesion laboratory and microbiology Laboratory Tests 05/13/24 05:05 05/12/24 05:32 Test 05/12/24 05:32 Range/Units Serum Glucose 77 74-106 mg/dL Microbiology Date/Time Source Procedure Growth Status 05/12/24 05:10 Nose MRSA Screen - Final Methicillin Resistant S.aureus Complete Labs and/or images reviewed: Labs reviewed by me, Image(s) reviewed by me Problem List/Assessment/Plan Problem List/Assessment/Plan Chest likely due to NSTEMI NSTEMI likely type 2 Hypertensive emergency Possible Acute on chronic diastolic heart failure Echocardiogram from 01/22/2024 shows EF 65% and grade 1 diastolic dysfunction Chest x-ray shows pulmonary vascular congestion with cephalization of pulmonary vessels Troponin I is raised, downtrending Aspirin and atorvastatin Continue carvedilol Stopped amlodipine Increased dose of nifedipine from 30 mg to 60 mg Injection hydralazine 10 mg q.6 hours as needed Cardiology on the board Telemetry ESRD, on maintenance hemodialysis Nephrology on the board Hemodialysis performed today, 3 L of fluid taken out Depression Continue home medication Abnormal urinalysis, clinically insignificant DVT prophylaxis Apixaban b.i.d. Code status Full Code Stress ulcer prevention Protonix Case discussed with Dr. Aldana Plan discussed with: Patient, Other (RN) Date of Service: May 13, 2024 Billing Provider: EVETTE WISDOM MD Common Visit Codes: [id number] INP/OBS CARE(HIGH) SUSANA TRUJILLO May 13, 2024 18:39 EVETTE WISDOM MD May 13, 2024 19:16
[2024-05-13 19:06] LABS: Chloride 103 mmol/L (98-107); Potassium 4.7 mmol/L (3.5-5.1); Sodium 138 mmol/L (136-145)
[2024-05-13 19:07] LABS: Anion Gap 16 (5-15); Calcium 9.1 mg/dL (8.7-10.4); Carbon Dioxide 19 mmol/L (20-31)
[2024-05-13 19:12] LABS: BUN/Creatinine Ratio 8.6 (10.0-20.0); Glucose 75 mg/dL (74-106)
[2024-05-13 19:14] LABS: Blood Urea Nitrogen 69 mg/dL (9-23)
[2024-05-13] MEDS: DOCUSATE SOD 100 MG CAP PO PRN (20:16)
--- NOTE | 2024-05-13 22:36 | DVHINCON2 ---
Date of service: May 13, 2024 Referring Physician Stefan Reason for Consultation NSTEMI History of Present Illness This is a 53-year-old female with a PMH of CAD, CHF, CKF, ESRD, HTN, [place], pulmonary edema who was brought in by ambulance from a local dialysis center on 05/11 with complaints of chest pain. Patient reports he had nonspecific chest pain during dialysis session, the dialysis was stopped, and he was sent to our facility ED for further evaluation. The dialysis center staff also noticed the patient's blood pressure reading was at 238/110. Patient received IV Hydralazine. Chest x-ray revealing pulmonary vascular congestion. Troponin 65, 63, and 55. Patient was admitted to the hospital. I am asked to consult on this patient. Family History: Cardiovascular disease G8 MOTHER Allergies: Coded Allergies: Ondansetron (Verified Allergy, Mild, 05/12/24) Hydromorphone (Verified Allergy, Unknown, 01/21/24) Ibuprofen (Verified Allergy, Unknown, 01/21/24) Morphine (Verified Allergy, Unknown, 01/21/24) Home Meds Active Scripts Clopidogrel Bisulfate (Plavix) 75 Mg Tab, 75 MG PO DAILY for 60 Days, #60 TAB Prov:EVETTE WISDOM MD 04/11/24 Nifedipine (Nifedipine Er) 30 Mg Tab, 30 MG PO QPM for 60 Days, #60 TAB Prov:EVETTE WISDOM MD 04/11/24 Reported Medications Atorvastatin Calcium (Lipitor) 20 Mg Tab, 1 TAB PO DAILY for 30 Days, #30 05/12/24 Losartan Potassium (Losartan Potassium) 100 Mg Tab, 1 TAB PO DAILY for 90 Days, #90 05/12/24 Spironolactone (Spironolactone) 25 Mg Tab, 1 TAB PO DAILY for 90 Days, #90 05/12/24 Ergocalciferol (Vitamin D (Ergocalciferol) 50,000 Unit Cap, 1 CAP PO QWEEKLY for 49 Days, #7 05/12/24 Furosemide (Furosemide) 40 Mg Tab, 1 TAB PO DAILY for 30 Days, #30 05/12/24 Amlodipine Besylate (Amlodipine Besylate) 5 Mg Tab, 1 TAB PO BID for 30 Days, #60 05/12/24 Calcitriol (Calcitriol) 0.5 Mcg Cap, 1 CAP PO BID for 30 Days, #60 05/12/24 Hydroxyzine Hcl (Hydroxyzine Hcl) 25 Mg Tab, 1 TAB PO QID PRN 02/16/24 Lactulose (Lactulose) 10 Gm/15 Ml Patricia, 30 ML PO DAILY 02/16/24 Docusate Sodium (Colace) 100 Mg Cap, 1 CAP PO BID 02/16/24 Lidocaine (Ztlido) 1.8 % Pad, 1 PATCH EX DAILY 02/16/24 Apixaban Base (ELIQUIS) 5 Mg Tab, 1 TAB PO BID for 30 Days, #30 02/16/24 Escitalopram Oxalate (Lexapro) 5 Mg Tab, 1 TAB PO DAILY 02/16/24 Benzonatate (Benzonatate) 100 Mg Cap, 1 TAB PO TID 02/16/24 Cinacalcet Hydrochloride (Sensipar) 30 Mg Tab, 1 TAB PO DAILY for 30 Days, #30 02/16/24 Sevelamer Carbonate (Renvela) 800 Mg Tab, 3 TAB PO TID for 30 Days, #270 02/16/24 Gabapentin (Gabapentin) 100 Mg Cap, 1 TAB PO DAILY for 90 Days, #90 02/16/24 Pantoprazole Sodium Sesquihydr (Protonix) 40 Mg Tab, 1 TAB PO BID for 30 Days, #60 02/16/24 Senna (Senokot) 8.6 Mg Tab, 2 TAB PO BID for 15 Days, #60 01/22/24 Carvedilol (Carvedilol) 12.5 Mg Tab, 1 TAB PO BID for 60 Days 01/22/24 Dicyclomine Hcl (Dicyclomine Hcl) 10 Mg Cap, 10 MG PO TIDPRN PRN for PAIN SCALE 1 THRU 6 for 30 Days, MG 01/22/24 Hydrocodone-Acetaminophen (Hydrocodone Bitartrate/AC 5-325 mg) 1 Tab Tab, 1 TAB PO Q6HP PRN for PAIN SCALE 1 THRU 6, TAB 01/22/24 Amitriptyline Hcl (Amitriptyline Hcl) 25 Mg Tab, 50 MG PO HS for 30 Days, #30 01/22/24 Aspirin (Aspir-Low) 81 Mg Tab, 1 TAB PO DAILY for 30 Days, #30 01/22/24 Discontinued Reported Medications Calcitriol (Calcitriol) 0.25 Mcg Cap, 1 CAP PO DAILY 02/16/24 Current Medications Current Medications Medications (Trade) Dose Ordered Sig/Homer Route PRN Reason Start Time Stop Time Status Last Admin Atorvastatin Calcium (Lipitor) 40 mg HS PO 05/12/24 22:00 05/13/24 20:16 Mupirocin (Bactroban 2% Ointment) 1 applic BID EACHNOSTRI 05/12/24 22:00 05/17/24 21:59 05/13/24 20:14 Gabapentin (Neurontin Capsule) 300 mg QHSP PO 05/14/24 22:00 Review of Systems CONSTITUTIONAL: Denies acute: fever, diaphoresis, chills, HEAD: Denies acute: headache, photophobia Eyes: Denies acute: Double vision, vision loss, eye pain, eye discharge. EARS: Denies acute: tinnitus, hearing loss, ear discharge, ear pain, THROAT: Denies acute: sore throat, swelling, difficulty swallowing , pain with swallowing, change in voice. NECK: Denies acute: neck pain, neck swelling, stiff neck. HEART: Denies acute : palpitations, LUNGS: Denies acute: SOB, wheezing, cough, hemoptysis ABDOMEN: Denies acute: abdominal pain, Nausea, Vomiting, diarrhea, melena , hematemesis, hematochezia SKIN: Denies acute: rash, redness, lesions, itchiness. EXTREMITIES: Denies acute: calf pain, numbness, tingling, weakness, denies pain in extremity. Denies acute: Low back pain. Neuro: Denies acute: focal neurological deficit, motor or sensory focal neurological deficit, tremors, seizure like activity, confusion, dizziness, change in mental status, loss of bowel or bladder function, cauda equina like symptoms. : Denies acute: dysuria, hematuria, flank pain, increase in urinary frequency. PSYCH: Denies acute: hallucination, suicidal ideation, homicidal ideation. FEMALE: Denies acute: abnormal vaginal bleeding, foul odor, unusual discharge. Vital Signs Vital Signs Date Time Temp Pulse Resp B/P (MAP) Pulse Ox O2 Delivery O2 Flow Rate FiO2 05/13/24 20:16 82 159/76 05/13/24 16:03 98.2 18 96 98.2 05/13/24 08:00 Nasal Cannula* 2 28 Physical Exam GENERAL: Awake, alert, oriented. LUNGS: Clear. CARDIOVASCULAR: Heart sounds are good. ABDOMEN: Soft. Labs/Diagnostic Data Labs Test 05/13/24 05:05 05/12/24 05:32 05/12/24 05:10 05/11/24 14:48 Range/Units White Blood Count 3.8 L 4.4-10.8 10^3/uL Red Blood Count 3.58 L 4.0-5.20 10^6/uL Hemoglobin 10.8 L 12.2-16.2 g/dL Hematocrit 33.9 L 36.0-46.0 % Mean Corpuscular Volume 94.9 80.0-100.0 fL Mean Corpuscular Hemoglobin 30.2 28.0-32.0 pg Mean Corpuscular Hemoglobin Concent 31.9 L 32.0-36.0 g/dL Red Cell Distribution Width 18.5 H 11.8-14.3 % Platelet Count 174 140-450 10^3/uL Mean Platelet Volume 7.9 6.9-10.8 fL Neutrophils (%) (Auto) 44.8 37.0-80.0 % Lymphocytes (%) (Auto) 41.6 10.0-50.0 % Monocytes (%) (Auto) 8.1 0.0-12.0 % Eosinophils (%) (Auto) 4.7 0.0-7.0 % Basophils (%) (Auto) 0.8 0.0-2.0 % Neutrophils # (Auto) 1.7 1.6-8.6 10 ^3/uL Lymphocytes # (Auto) 1.6 0.4-5.4 10 ^3/uL Monocytes # (Auto) 0.3 0-1.3 10 ^3/uL Eosinophils # (Auto) 0.2 0-0.8 10 ^3/uL Basophils # (Auto) 0 0-0.2 10 ^3/uL Nucleated Red Blood Cells 0.1 % Sodium Level 138 136-145 mmol/L Potassium Level 4.7 3.5-5.1 mmol/L Chloride Level 103 98-107 mmol/L Carbon Dioxide Level 19 L 20-31 mmol/L Anion Gap 16 H 5-15 Blood Urea Nitrogen 69 #H 9-23 mg/dL Creatinine 8.00 H 0.550-1.02 mg/dL Glomerular Filtration Rate Calc 6 >90 mL/min BUN/Creatinine Ratio 8.6 L 10.0-20.0 Serum Glucose 75 74-106 mg/dL Calcium Level 9.1 8.7-10.4 mg/dL Troponin I High Sensitivity 39 *H </=34 ng/L Total Bilirubin 0.4 0.2-1.0 mg/dL Aspartate Amino Transferase (AST) 20 13-40 U/L Alanine Aminotransferase (ALT) 26 7-40 U/L Alkaline Phosphatase 104 46-116 U/L Total Protein 6.7 5.7-8.2 g/dL Albumin 3.3 3.2-4.8 g/dL Hepatitis B Surface Antigen Negative Negative Hepatitis C Antibody Negative Negative Urine Color Colorless Yellow Urine Clarity Turbid H Clear Urine pH 8.5 5.0-9.0 Urine Specific [place] 1.012 1.001-1.035 Urine Protein 3+ H Negative Urine Ketones Negative Negative Urine Blood 1+ H Negative /uL Urine Nitrite Negative Negative Urine Bilirubin Negative Negative Urine Urobilinogen Normal Negative mg/dL Urine Leukocyte Esterase Negative Negative /uL Urine RBC 15 0 - 4 /hpf Urine WBC 5 0 - 5 /hpf Urine Squamous Epithelial Cells Many <5 /hpf Urine Bacteria Many H None Seen /hpf Urine Glucose 1+ H Normal mg/dL Prothrombin Time 12.7 H 9.3-11.8 sec Prothrombin Time INR 1.22 H 0.9-1.15 Activated Partial Thromboplast Time 24.8 24.5-34.5 SEC Microbiology Date/Time Source Procedure Growth Status 05/12/24 05:10 Nose MRSA Screen - Final Methicillin Resistant S.aureus Complete Assessment Chest pain. NSTEMI. Hypertensive emergency. ESRD on hemodialysis. Depression. Plan/Recommendation I agree with your ongoing assessment and care of plan. [place] for pain management. Eliquis. Aspirin,Lipitor. Coreg, Nifedipine. Additional plan as per the hospital course. A total of 45 minutes was spent reviewing the patient record, examining the patient, making a diagnostic and therapeutic plan, discussing this plan with medical personnel, following up on diagnostic studies and following the patient for clinical stability excluding any and all procedures. At least 50% of this time was spent in direct, [id number] contact. Plan discussed with: Patient MARIO ALBERTO COURTNEY MD May 13, 2024 21:26
[2024-05-14] VITALS (8 sets, daily range): BP systolic 113–195; BP diastolic 47–90; PULSE 70–82; RESP 17–20; TEMP 97.3–98.6; O2SAT 92–100
[2024-05-14 07:12] LABS: Alanine Aminotransferase 19 U/L (7-40); Albumin 3.7 g/dL (3.2-4.8); Alkaline Phosphatase 105 U/L (46-116); Anion Gap 13 (5-15); Aspartate Aminotransferase 13 U/L (13-40); BUN/Creatinine Ratio 6.9 (10.0-20.0); Calcium 9.8 mg/dL (8.7-10.4); Carbon Dioxide 24 mmol/L (20-31); Chloride 102 mmol/L (98-107); Glucose 100 mg/dL (74-106); Potassium 4.7 mmol/L (3.5-5.1); Sodium 139 mmol/L (136-145)
[2024-05-14 07:13] LABS: Bilirubin, Total 0.3 mg/dL (0.2-1.0); Total Protein 7.1 g/dL (5.7-8.2)
[2024-05-14 07:14] LABS: Blood Urea Nitrogen 46 mg/dL (9-23)
[2024-05-14] MEDS ORDERED: PROCHLORPERAZINE EDISYLATE 5 MG/ML 2ML VIAL IM ONE (10:45)
[2024-05-14] MEDS: PROCHLORPERAZINE EDISYLATE 5 MG/ML 2ML VIAL IV ONE (12:28)
[2024-05-14 14:12] LABS: Basophils # (auto) 0 10 ^3/uL (0-0.2); Basophils % (auto) 0.9 % (0.0-2.0); Eosinophils # (auto) 0.2 10 ^3/uL (0-0.8); Eosinophils % (auto) 4.3 % (0.0-7.0); Hematocrit 35.7 % (36.0-46.0); Hemoglobin 11.5 g/dL (12.2-16.2); Lymphocytes # (auto) 1.4 10 ^3/uL (0.4-5.4); Mean Corpuscular Hemoglobin 31.5 pg (28.0-32.0); Mean Corpuscular Hgb Conc. 32.3 g/dL (32.0-36.0); Mean Corpuscular Volume 97.5 fL (80.0-100.0); Monocytes # (auto) 0.4 10 ^3/uL (0-1.3); Monocytes % (auto) 9.2 % (0.0-12.0); Neutrophils % (auto) 49.6 % (37.0-80.0); Nucleated Red Blood Cells % 0.1 %; Platelet Count (auto) 153 10^3/uL (140-450); Red Blood Cells 3.66 10^6/uL (4.0-5.20); Red Cell Distribution Width 18.1 % (11.8-14.3); White Blood Cell 3.9 10^3/uL (4.4-10.8)
[2024-05-14 14:33] LABS: Alanine Aminotransferase 20 U/L (7-40); Albumin 4.1 g/dL (3.2-4.8); Alkaline Phosphatase 118 U/L (46-116); Anion Gap 9 (5-15); Aspartate Aminotransferase 11 U/L (13-40); BUN/Creatinine Ratio 6.7 (10.0-20.0); Bilirubin, Total 0.4 mg/dL (0.2-1.0); Blood Urea Nitrogen 45 mg/dL (9-23); Calcium 10.1 mg/dL (8.7-10.4); Carbon Dioxide 26 mmol/L (20-31); Chloride 101 mmol/L (98-107); Glucose 99 mg/dL (74-106); Potassium 4.9 mmol/L (3.5-5.1); Sodium 136 mmol/L (136-145); Total Protein 7.6 g/dL (5.7-8.2)
[2024-05-14] MEDS ORDERED: NIFE1TAB31 PO (15:34)
--- NOTE | 2024-05-14 16:00 | DVHPN2 ---
Progress Note - Dictate Date Seen: May 14, 2024 Has the PT tested + for MRSA If YES, has PT been informed?: No Medical Necessity Reason Pt with a Central, PICC or Fol: No Subjective no acute issues overnight vital signs Vital Sign Date Time Temp Pulse Resp B/P (MAP) Pulse Ox O2 Delivery O2 Flow Rate FiO2 05/14/24 13:00 97.4 74 17 113/56 (75) 93 97.4 05/14/24 08:00 Nasal Cannula* 2 28 Total Intake and Output 05/13/24 05/13/24 05/14/24 15:00 23:00 07:00 Intake Total 360 ml 420 ml Output Total 20 ml 0 ml Balance 340 ml 420 ml medications Current Medications Medications Dose Ordered Sig/Homer Route Start Time Stop Time Status Last Admin Dose Admin Carvedilol 12.5 mg Q12HR PO 05/11/24 22:00 05/14/24 08:27 12.5 MG Multivit/Ca Carb/ B Cmplx/FA/Prenat 1 tab DAILY PO 05/12/24 10:00 05/14/24 08:27 1 TAB Sevelamer HCl 800 mg TIDWM PO 05/11/24 18:00 05/14/24 11:42 800 MG Apixaban 5 mg BID PO 05/11/24 22:00 05/14/24 08:27 5 MG Sodium Chloride 10 ml Q8HR IV 05/11/24 22:00 05/14/24 14:00 10 ML Docusate Sodium 100 mg BIDPRN PRN PO 05/11/24 15:00 05/13/24 20:16 100 MG Acetaminophen 650 mg Q6HP PRN PO 05/11/24 15:00 Nitroglycerin 0.4 mg Q5MINP PRN SL 05/11/24 15:30 Acetaminophen/ Hydrocodone Bitart 1 tab Q6HP PRN PO 05/11/24 16:30 05/14/24 03:41 1 TAB Aspirin 81 mg DAILY PO 05/12/24 10:00 05/14/24 08:27 81 MG Atorvastatin Calcium 40 mg HS PO 05/12/24 22:00 05/13/24 20:16 40 MG Hydralazine HCl 10 mg Q6HP PRN IV 05/12/24 14:15 05/13/24 15:27 10 MG Mupirocin 1 applic BID EACHNOSTRI 05/12/24 22:00 05/17/24 21:59 05/14/24 08:28 1 APPLIC Nifedipine 60 mg QPM PO 05/12/24 18:00 05/13/24 18:00 60 MG Gabapentin 300 mg QHSP PO 05/14/24 22:00 objective Awake alert oriented x3 HEENT: Normocephalic, no JVD Lungs: Bilateral good air entry CVS: S1, S2 regular rate rhythm Abdomen: Soft, bowel sounds present ELEVATOR STARTER: No focal deficits Extremities: No edema laboratory and microbiology Laboratory Tests 05/14/24 14:01 Test 05/14/24 14:01 Range/Units Serum Glucose 99 74-106 mg/dL Problem List End-stage kidney disease on hemodialysis Accelerated hypertension History of coronary artery disease status post CABG Anemia secondary to Chronic kidney disease Noncompliance Assessment/Plan HD on TTS schedule . BP is stable Stable for dc from renal standpoint Plan discussed with: Patient JEANETTE ZELAYA MD May 14, 2024 16:00
--- NOTE | 2024-05-14 16:07 | DVHDSRES ---
Discharge Summary Date of Admission Resident Creating Document: SUSANA TRUJILLO RESDIENT May 11, 2024 at 15:30 Date of Discharge: May 14, 2024 Admitting Diagnosis Acute chest pain Labs/Diagnostic Data: Laboratory Results Test 05/14/24 14:01 05/14/24 05:49 05/12/24 05:32 05/12/24 05:10 White Blood Count 3.9 10^3/uL (4.4-10.8) Red Blood Count 3.66 10^6/uL (4.0-5.20) Hemoglobin 11.5 g/dL (12.2-16.2) Hematocrit 35.7 % (36.0-46.0) Mean Corpuscular Volume 97.5 fL (80.0-100.0) Mean Corpuscular Hemoglobin 31.5 pg (28.0-32.0) Mean Corpuscular Hemoglobin Concent 32.3 g/dL (32.0-36.0) Red Cell Distribution Width 18.1 % (11.8-14.3) Platelet Count 153 10^3/uL (140-450) Mean Platelet Volume 7.6 fL (6.9-10.8) Neutrophils (%) (Auto) 49.6 % (37.0-80.0) Lymphocytes (%) (Auto) 36.0 % (10.0-50.0) Monocytes (%) (Auto) 9.2 % (0.0-12.0) Eosinophils (%) (Auto) 4.3 % (0.0-7.0) Basophils (%) (Auto) 0.9 % (0.0-2.0) Neutrophils # (Auto) 2.0 10 ^3/uL (1.6-8.6) Lymphocytes # (Auto) 1.4 10 ^3/uL (0.4-5.4) Monocytes # (Auto) 0.4 10 ^3/uL (0-1.3) Eosinophils # (Auto) 0.2 10 ^3/uL (0-0.8) Basophils # (Auto) 0 10 ^3/uL (0-0.2) Nucleated Red Blood Cells 0.1 % Sodium Level 136 mmol/L (136-145) Potassium Level 4.9 mmol/L (3.5-5.1) Chloride Level 101 mmol/L (98-107) Carbon Dioxide Level 26 mmol/L (20-31) Anion Gap 9 (5-15) Blood Urea Nitrogen 45 mg/dL (9-23) Creatinine 6.73 mg/dL (0.550-1.02) Glomerular Filtration Rate Calc 7 mL/min (>90) BUN/Creatinine Ratio 6.7 (10.0-20.0) Serum Glucose 99 mg/dL (74-106) Calcium Level 10.1 mg/dL (8.7-10.4) Total Bilirubin 0.4 mg/dL (0.2-1.0) Aspartate Amino Transferase (AST) 11 U/L (13-40) Alanine Aminotransferase (ALT) 20 U/L (7-40) Alkaline Phosphatase 118 U/L (46-116) Total Protein 7.6 g/dL (5.7-8.2) Albumin 4.1 g/dL (3.2-4.8) Troponin I High Sensitivity 35 ng/L (</=34) Hepatitis B Surface Antigen Negative (Negative) Hepatitis C Antibody Negative (Negative) Urine Color Colorless (Yellow) Urine Clarity Turbid (Clear) Urine pH 8.5 (5.0-9.0) Urine Specific [place] 1.012 (1.001-1.035) Urine Protein 3+ (Negative) Urine Ketones Negative (Negative) Urine Blood 1+ /uL (Negative) Urine Nitrite Negative (Negative) Urine Bilirubin Negative (Negative) Urine Urobilinogen Normal mg/dL (Negative) Urine Leukocyte Esterase Negative /uL (Negative) Urine RBC 15 /hpf (0 - 4) Urine WBC 5 /hpf (0 - 5) Urine Squamous Epithelial Cells Many /hpf (<5) Urine Bacteria Many /hpf (None Seen) Urine Glucose 1+ mg/dL (Normal) Test 05/11/24 14:48 Prothrombin Time 12.7 sec (9.3-11.8) Prothrombin Time INR 1.22 (0.9-1.15) Activated Partial Thromboplast Time 24.8 SEC (24.5-34.5) Other Laboratory Tests 05/14/24 14:01 Brief Hx & Hospital Course: The patient is a 53-year-old female with a past medical history including end- stage renal disease on hemodialysis, HI, coronary artery disease, and hypertension who presented to [facility] with a complaint of acute chest pain. The patient reported nonspecific chest pain during a dialysis session, which led to the session being stopped and her being sent to the ED for further evaluation. She denied chest pain at the moment, as well as headache, dizziness, diaphoresis, shortness of breath, nausea, vomiting, fever, and chills. The patient was admitted for further evaluation and medical management. PMHx: CAD, CKF, ESRD, HTN, depression, DM PSHx: CABG, dialysis access, cholecystectomy Family History: Noncontributory Social History: Lives at home with cousin, ex-smoker with a 30 pack-year history, denies alcohol and drug use Home Medication: Amlodipine, apixaban, aspirin, calcitriol, budesonide, carvedilol, cinacalcet, clopidogrel, docusate, escitalopram, gabapentin, nifedipine, cefepime Allergic History: Hydromorphone, ibuprofen, and morphine On physical examination in ED, the patient had mild chest tenderness, otherwise unremarkable. . Laboratory data showed WBC 3.4, hemoglobin 9.6, hematocrit 29.4, platelets 161, blood pressure 238/110, heart rate 72, temperature 97.6F, and O2 saturation 97% on room air. Patient was admitted for evaluation chest pain. The patient was put on hypertensive emergency protocol with NSTEMI type 2 and acute on chronic diastolic heart failure treatment protocol, given aspirin, atorvastatin, IV hydralazine 10 mg every 4 hours as required, resumed home antihypertensive treatment, [place] 10/325 mg p.o,and Lasix 20 mg b.i.d.. Chest X-ray revealed pulmonary vascular congestion, EKG was showing normal sinus rhythm with no significant ST or T-wave changes. Echocardiogram from 01/22/2024 shows EF 65% and grade 1 diastolic dysfunction. Cardiology was consulted, recommended the medical management. Nephrology was consulted and performed the previously scheduled hemodialysis. On 05/14/2024, the patient was feeling better, chest pain had improved, trop I normalized, telemetry showed no significant event, blood pressure controlled, discharge plan discussed with the patient. Discharge plan: Follow up with the PCP within 1 week after discharge. Follow up with the Cardiology within 1 week after discharge. Follow up with the Nephrology are noted patient has and maintenance hemodialysis. Nifedipine 60 mg daily Carvedilol 12.5 mg twice daily Resume the rest of home medication Consults/Reason for consult Nephrology: ESRD on maintenance hemodialysis Cardiology: NSTEMI type 2 Operations or Procedures [place] [id number] Ph: [phone] DIAGNOSTIC IMAGING Diagnostic Imaging Report : [id number] Signed PATIENT: GRACIELA CRUZACCT: [id number] UNIT: [id number] : 1970 LOC: ER ROOM / BED: / AGE / SEX: 53 / F ADM STATUS: REG ER SERVICE 1129 ORDERING PHYSICIAN: RICHARD CARBAJAL DO PROCEDURE(s): CXRP - CHEST PORTABLE REASON: cp ORDER NUMBER(s): [id number], ACCESSION NUMBER(s): [id number] CHEST RADIOGRAPH Indication:cp Technique: Single frontal view of the chest was obtained COMPARISON: XY CHEST PORTABLE on DOS: 04/08/24, XY CHEST PORTABLE on DOS: 03/30/24, XY CHEST XRAY 1 VIEW on DOS: 02/14/24 FINDINGS: Lines and Tubes: Median sternotomy. Right tunneled central venous catheter in satisfactory position. Lungs: Clear Pleura: Small left pleural effusion. No pneumothorax. Cardiomediastinal contours: Unremarkable Bones: Unremarkable IMPRESSION: Pulmonary vascular congestion. ATED BY: BIN HARRISON MD DICTATED DATE/TIME: 05/11/241228 SIGNED BY: BIN HARRISON MD SIGNED DATE/TIME: 05/11/241228 CC: EKG Name: GRACIELA CRUZ Acct: [id number] [place] [address] ELECTROCARDIOGRAM REPORT PATIENT: GRACIELA CRUZACCT: [id number] : 1970 LOC: TELE ROOM / BED: [facility] / A AGE / SEX: 53 / F ADM STATUS: ADM IN SERVICE 17 UNIT: [id number] ORDERING PHYSICIAN: ADAM TRIPP MD PROCEDURE(s): EKG - ELECTROCARDIGRAM ORDER NUMBER(s): [id number], ACCESSION NUMBER(s): [id number] [facility] Test Date: 2024-05-11 Test Time: 11:16:11 Pat Name: GRACIELA CRUZ Department: ER Room: [address] [place] [address] Gender: F Manager Insurance: ROSEMARY : 1970 Requested By: ADAM TRIPP Order Number: [id number] Reading MD: Measurements Intervals [place] Rate: 87 P: 40 TX: 165 QRS: -20 QRSD: 90 T: 74 QT: 396 QTc: 477 Interpretive Statements Sinus rhythm Probable left atrial enlargement Borderline left axis deviation Anterior infarct, old Please click the below link to view image of tracing. DICTATED BY: DICTATED DATE/TIME:05/11/24 1116 ELECTRONICALLY SIGNED BY: ELECTRONICALLY CO-SIGNED BY: Condition at Discharge: Good Final Diagnosis/Problems List Chest likely due to NSTEMI type 2 NSTEMI likely type 2, likely due to hypertensive emergency Hypertensive emergency, likely due to medicine nonadherence Possible Acute on chronic diastolic heart failure ESRD, on maintenance hemodialysis Depression Abnormal urinalysis, clinically insignificant Ruled out atrial fibrillation History of DVT History of coronary artery disease status post CABG History of coronary artery disease status post CABG Generalized weakness, likely due to NSTEMI type 2 Thrombocytopenia, hemodynamically insignificant Discharge Disposition: Home Discharge Statement: "Patient was advised to return to the ER or call 911 if any headaches, dizziness, shortness of breath, chest pain, abdominal pain, bleeding, fevers, or worsening of medical condition. Patient was counseled about treatment plan, medications, possible side effects, patientverbalized understanding. All questions were answered to the best of my ability. This discharge took greater then 30 minutes in planning, reviewing documentation, counseling the patient, and discussing with other team members." ASSESSMENT ASSESSMENT Assessment Date of Service: May 14, 2024 Billing Provider: EVETTE WISDOM MD Common Visit Codes: 85106-OHQ/OBS DISCH DAY >30min SUSANA TRUJILLO RESDIENT May 14, 2024 16:07 EVETTE WISDOM MD May 15, 2024 19:52
--- NOTE | 2024-05-14 17:18 | DVHPN2 ---
Progress Note - Dictate Date Seen: May 14, 2024 Has the PT tested + for MRSA If YES, has PT been informed?: No Medical Necessity Reason Pt with a Central, PICC or Fol: No Subjective Patient was seen and evaluated in follow up. Patient is complaining of chest discomfort. She is on 2 LPM NC. Patient received HD yesterday. 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 Repeat troponin 35. MRSA returned positive. vital signs Vital Sign Date Time Temp Pulse Resp B/P (MAP) Pulse Ox O2 Delivery O2 Flow Rate FiO2 05/14/24 09:27 91 154/75 05/14/24 09:00 97.6 17 100 97.6 05/13/24 20:00 Nasal Cannula* 2 28 Total Intake and Output 05/13/24 05/13/24 05/14/24 15:00 23:00 07:00 Intake Total 360 ml 420 ml Output Total 20 ml 0 ml Balance 340 ml 420 ml medications Current Medications Medications Dose Ordered Sig/Homer Route Start Time Stop Time Status Last Admin Dose Admin Carvedilol 12.5 mg Q12HR PO 05/11/24 22:00 05/14/24 08:27 12.5 MG Multivit/Ca Carb/ B Cmplx/FA/Prenat 1 tab DAILY PO 05/12/24 10:00 05/14/24 08:27 1 TAB Sevelamer HCl 800 mg TIDWM PO 05/11/24 18:00 05/14/24 08:26 800 MG Apixaban 5 mg BID PO 05/11/24 22:00 05/14/24 08:27 5 MG Sodium Chloride 10 ml Q8HR IV 05/11/24 22:00 05/14/24 05:09 10 ML Docusate Sodium 100 mg BIDPRN PRN PO 05/11/24 15:00 05/13/24 20:16 100 MG Acetaminophen 650 mg Q6HP PRN PO 05/11/24 15:00 Nitroglycerin 0.4 mg Q5MINP PRN SL 05/11/24 15:30 Acetaminophen/ Hydrocodone Bitart 1 tab Q6HP PRN PO 05/11/24 16:30 05/14/24 03:41 1 TAB Aspirin 81 mg DAILY PO 05/12/24 10:00 05/14/24 08:27 81 MG Atorvastatin Calcium 40 mg HS PO 05/12/24 22:00 05/13/24 20:16 40 MG Hydralazine HCl 10 mg Q6HP PRN IV 05/12/24 14:15 05/13/24 15:27 10 MG Mupirocin 1 applic BID EACHNOSTRI 05/12/24 22:00 05/17/24 21:59 05/14/24 08:28 1 APPLIC Nifedipine 60 mg QPM PO 05/12/24 18:00 05/13/24 18:00 60 MG Gabapentin 300 mg QHSP PO 05/14/24 22:00 objective GENERAL: Awake, alert, oriented. LUNGS: Clear. CARDIOVASCULAR: Heart sounds are good. ABDOMEN: Soft. laboratory and microbiology Laboratory Tests 05/14/24 05:49 Test 05/14/24 05:49 Range/Units Serum Glucose 100 74-106 mg/dL Problem List Chest pain. NSTEMI. Hypertensive emergency. ESRD on hemodialysis. Depression. Assessment/Plan Continued all current supportive medical care. [place] for pain management. Eliquis. Aspirin,Lipitor. Coreg, Nifedipine. Additional plan as per the hospital course. Plan discussed with: Patient MARIO ALBERTO COURTNEY MD May 14, 2024 11:18
[2024-05-14] MEDS: GABAPENTIN 300 MG CAP PO SCH (23:56)
[2024-05-15] VITALS (8 sets, daily range): BP systolic 152–220; BP diastolic 45–131; PULSE 45–103; RESP 12–19; TEMP 97.8–98.3; O2SAT 92–99
[2024-05-15] MEDS ORDERED: SODIUM CHL 0.9% 1000 ML BAG XX ONE (07:00)
[2024-05-15 10:05] LABS: Basophils # (auto) 0 10 ^3/uL (0-0.2); Basophils % (auto) 0.6 % (0.0-2.0); Eosinophils # (auto) 0.1 10 ^3/uL (0-0.8); Eosinophils % (auto) 2.6 % (0.0-7.0); Hematocrit 32.6 % (36.0-46.0); Hemoglobin 10.6 g/dL (12.2-16.2); Lymphocytes # (auto) 1.2 10 ^3/uL (0.4-5.4); Lymphocytes % (auto) 25.1 % (10.0-50.0); Mean Corpuscular Hemoglobin 30.9 pg (28.0-32.0); Mean Corpuscular Hgb Conc. 32.3 g/dL (32.0-36.0); Mean Corpuscular Volume 95.6 fL (80.0-100.0); Monocytes # (auto) 0.3 10 ^3/uL (0-1.3); Monocytes % (auto) 7.5 % (0.0-12.0); Neutrophils % (auto) 64.2 % (37.0-80.0); Nucleated Red Blood Cells % 0.1 %; Platelet Count (auto) 144 10^3/uL (140-450); Red Blood Cells 3.42 10^6/uL (4.0-5.20); White Blood Cell 4.7 10^3/uL (4.4-10.8)
[2024-05-15 10:09] LABS: Chloride 102 mmol/L (98-107); Potassium 5.5 mmol/L (3.5-5.1); Sodium 137 mmol/L (136-145)
[2024-05-15 10:10] LABS: Anion Gap 11 (5-15); Calcium 10.2 mg/dL (8.7-10.4); Carbon Dioxide 24 mmol/L (20-31)
[2024-05-15 10:15] LABS: BUN/Creatinine Ratio 7.3 (10.0-20.0); Glucose 78 mg/dL (74-106)
[2024-05-15 10:16] LABS: Magnesium 2.5 mg/dL (1.6-2.6)
[2024-05-15 10:19] LABS: Blood Urea Nitrogen 61 mg/dL (9-23)
--- NOTE | 2024-05-15 12:06 | DVHPN2 ---
Progress Note - Dictate Date Seen: May 15, 2024 Has the PT tested + for MRSA If YES, has PT been informed?: No Medical Necessity Reason Pt with a Central, PICC or Fol: No Subjective no acute issues overnight vital signs Vital Sign Date Time Temp Pulse Resp B/P (MAP) Pulse Ox O2 Delivery O2 Flow Rate FiO2 05/15/24 09:00 97.8 77 17 155/79 (104) 99 97.8 05/14/24 20:00 Nasal Cannula* 2 28 Total Intake and Output 05/14/24 05/14/24 05/15/24 15:00 23:00 07:00 Intake Total 600 ml Balance 600 ml medications Current Medications Medications Dose Ordered Sig/Homer Route Start Time Stop Time Status Last Admin Dose Admin Carvedilol 12.5 mg Q12HR PO 05/11/24 22:00 05/14/24 23:55 12.5 MG Multivit/Ca Carb/ B Cmplx/FA/Prenat 1 tab DAILY PO 05/12/24 10:00 05/15/24 08:03 1 TAB Sevelamer HCl 800 mg TIDWM PO 05/11/24 18:00 05/15/24 08:03 800 MG Apixaban 5 mg BID PO 05/11/24 22:00 05/14/24 23:55 5 MG Sodium Chloride 10 ml Q8HR IV 05/11/24 22:00 05/15/24 04:27 10 ML Docusate Sodium 100 mg BIDPRN PRN PO 05/11/24 15:00 05/13/24 20:16 100 MG Acetaminophen 650 mg Q6HP PRN PO 05/11/24 15:00 Nitroglycerin 0.4 mg Q5MINP PRN SL 05/11/24 15:30 Acetaminophen/ Hydrocodone Bitart 1 tab Q6HP PRN PO 05/11/24 16:30 05/14/24 03:41 1 TAB Aspirin 81 mg DAILY PO 05/12/24 10:00 05/14/24 08:27 81 MG Atorvastatin Calcium 40 mg HS PO 05/12/24 22:00 05/14/24 23:55 40 MG Hydralazine HCl 10 mg Q6HP PRN IV 05/12/24 14:15 05/13/24 15:27 10 MG Mupirocin 1 applic BID EACHNOSTRI 05/12/24 22:00 05/17/24 21:59 05/15/24 08:03 1 APPLIC Nifedipine 60 mg QPM PO 05/12/24 18:00 05/14/24 17:51 60 MG Gabapentin 300 mg QHSP PO 05/14/24 22:00 05/14/24 23:56 300 MG objective Awake alert oriented x3 HEENT: Normocephalic, no JVD Lungs: Bilateral good air entry CVS: S1, S2 regular rate rhythm Abdomen: Soft, bowel sounds present TRAUMA DIRECTOR: No focal deficits Extremities: No edema laboratory and microbiology Laboratory Tests 05/15/24 09:14 Test 05/15/24 09:14 Range/Units Serum Glucose 78 74-106 mg/dL Problem List End-stage kidney disease on hemodialysis Accelerated hypertension History of coronary artery disease status post CABG Anemia secondary to Chronic kidney disease Noncompliance Assessment/Plan Patient is scheduled for dialysis today. She is cleared from renal standpoint for discharge after dialysis today. Blood pressure is stable. Plan discussed with: Patient JEANETTE ZELAYA MD May 15, 2024 12:06
--- NOTE | 2024-05-15 16:17 | DVHDSRES ---
Discharge Summary Date of Admission Resident Creating Document: SUSANA TRUJILLO RESDIPAYTON May 11, 2024 at 15:30 Date of Discharge: May 14, 2024 Labs/Diagnostic Data: Laboratory Results Test 05/15/24 09:14 05/14/24 14:01 05/14/24 05:49 05/12/24 05:32 White Blood Count 4.7 10^3/uL (4.4-10.8) Red Blood Count 3.42 10^6/uL (4.0-5.20) Hemoglobin 10.6 g/dL (12.2-16.2) Hematocrit 32.6 % (36.0-46.0) Mean Corpuscular Volume 95.6 fL (80.0-100.0) Mean Corpuscular Hemoglobin 30.9 pg (28.0-32.0) Mean Corpuscular Hemoglobin Concent 32.3 g/dL (32.0-36.0) Red Cell Distribution Width 18.0 % (11.8-14.3) Platelet Count 144 10^3/uL (140-450) Mean Platelet Volume 8.0 fL (6.9-10.8) Neutrophils (%) (Auto) 64.2 % (37.0-80.0) Lymphocytes (%) (Auto) 25.1 % (10.0-50.0) Monocytes (%) (Auto) 7.5 % (0.0-12.0) Eosinophils (%) (Auto) 2.6 % (0.0-7.0) Basophils (%) (Auto) 0.6 % (0.0-2.0) Neutrophils # (Auto) 3.0 10 ^3/uL (1.6-8.6) Lymphocytes # (Auto) 1.2 10 ^3/uL (0.4-5.4) Monocytes # (Auto) 0.3 10 ^3/uL (0-1.3) Eosinophils # (Auto) 0.1 10 ^3/uL (0-0.8) Basophils # (Auto) 0 10 ^3/uL (0-0.2) Nucleated Red Blood Cells 0.1 % Sodium Level 137 mmol/L (136-145) Potassium Level 5.5 mmol/L (3.5-5.1) Chloride Level 102 mmol/L (98-107) Carbon Dioxide Level 24 mmol/L (20-31) Anion Gap 11 (5-15) Blood Urea Nitrogen 61 mg/dL (9-23) Creatinine 8.32 mg/dL (0.550-1.02) Glomerular Filtration Rate Calc 5 mL/min (>90) BUN/Creatinine Ratio 7.3 (10.0-20.0) Serum Glucose 78 mg/dL (74-106) Calcium Level 10.2 mg/dL (8.7-10.4) Magnesium Level 2.5 mg/dL (1.6-2.6) Total Bilirubin 0.4 mg/dL (0.2-1.0) Aspartate Amino Transferase (AST) 11 U/L (13-40) Alanine Aminotransferase (ALT) 20 U/L (7-40) Alkaline Phosphatase 118 U/L (46-116) Total Protein 7.6 g/dL (5.7-8.2) Albumin 4.1 g/dL (3.2-4.8) Troponin I High Sensitivity 35 ng/L (</=34) Hepatitis B Surface Antigen Negative (Negative) Hepatitis C Antibody Negative (Negative) Test 05/12/24 05:10 05/11/24 14:48 Urine Color Colorless (Yellow) Urine Clarity Turbid (Clear) Urine pH 8.5 (5.0-9.0) Urine Specific [place] 1.012 (1.001-1.035) Urine Protein 3+ (Negative) Urine Ketones Negative (Negative) Urine Blood 1+ /uL (Negative) Urine Nitrite Negative (Negative) Urine Bilirubin Negative (Negative) Urine Urobilinogen Normal mg/dL (Negative) Urine Leukocyte Esterase Negative /uL (Negative) Urine RBC 15 /hpf (0 - 4) Urine WBC 5 /hpf (0 - 5) Urine Squamous Epithelial Cells Many /hpf (<5) Urine Bacteria Many /hpf (None Seen) Urine Glucose 1+ mg/dL (Normal) Prothrombin Time 12.7 sec (9.3-11.8) Prothrombin Time INR 1.22 (0.9-1.15) Activated Partial Thromboplast Time 24.8 SEC (24.5-34.5) Other Laboratory Tests 05/15/24 09:14 Condition at Discharge: Good Final Diagnosis/Problems List Chest likely due to NSTEMI type 2 NSTEMI likely type 2, likely due to hypertensive emergency Hypertensive emergency, likely due to medicine nonadherence Possible Acute on chronic diastolic heart failure ESRD, on maintenance hemodialysis Depression Abnormal urinalysis, clinically insignificant Ruled out atrial fibrillation History of DVT History of coronary artery disease status post CABG History of coronary artery disease status post CABG Generalized weakness, likely due to NSTEMI type 2 Thrombocytopenia, hemodynamically insignificant Discharge Disposition: Home Discharge Instruct/Medications Diet: Renal Activity: No Restrictions, As Tolerated Follow Up/Referral: Follow up with the PCP within 1 week after discharge. Follow up with the Cardiology within 1 week after discharge. Follow up with the Nephrology are noted patient has and maintenance hemodialysis. Nifedipine 60 mg daily Carvedilol 12.5 mg twice daily Resume the rest of home medication Medications: Nifedipine 60 mg daily Carvedilol 12.5 mg twice daily Resume the rest of home medication Discharge Statement: "Patient was advised to return to the ER or call 911 if any headaches, dizziness, shortness of breath, chest pain, abdominal pain, bleeding, fevers, or worsening of medical condition. Patient was counseled about treatment plan, medications, possible side effects, patientverbalized understanding. All questions were answered to the best of my ability. This discharge took greater then 30 minutes in planning, reviewing documentation, counseling the patient, and discussing with other team members." ASSESSMENT ASSESSMENT Assessment Chest likely due to NSTEMI type 2NSTEMI likely type 2, likely due to hypertensive emergencyHypertensive emergency, likely due to medicine nonadherencePossible Acute on chronic diastolic heart failureESRD, on maintenance hemodialysisDepressionAbnormal urinalysis, clinically insignificantRuled out atrial fibrillationHistory of DVTHistory of coronary artery disease status post CABGHistory of coronary artery disease status post CABGGeneralized weakness, likely due to NSTEMI type 2Thrombocytopenia, hemodynamically insignificant ALEXA ALLISON RESIDENT May 15, 2024 16:17
--- NOTE | 2024-05-15 16:22 | DVHPNRES ---
Progress Note Date Seen: May 15, 2024 Resident Creating Document: ALEXA ALLISON RESIDENT Has the PT tested + for MRSA If YES, has PT been informed?: No Medical Necessity Reason Pt with a Central, PICC or Fol: No Subjective Review of Systems 53-year-old female patient seen and examined at bedside. 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 Patient received dialysis today. Objective vital signs Vital Sign Date Time Temp Pulse Resp B/P (MAP) Pulse Ox O2 Delivery O2 Flow Rate FiO2 05/15/24 13:00 97.9 75 18 181/78 (112) 92 97.9 05/15/24 08:00 Nasal Cannula* 2 28 Total Intake and Output 05/14/24 05/14/24 05/15/24 15:00 23:00 07:00 Intake Total 600 ml Balance 600 ml medications Current Medications Medications Dose Ordered Sig/Homer Route Start Time Stop Time Status Last Admin Dose Admin Carvedilol 12.5 mg Q12HR PO 05/11/24 22:00 05/14/24 23:55 12.5 MG Multivit/Ca Carb/ B Cmplx/FA/Prenat 1 tab DAILY PO 05/12/24 10:00 05/15/24 08:03 1 TAB Sevelamer HCl 800 mg TIDWM PO 05/11/24 18:00 05/15/24 12:47 800 MG Apixaban 5 mg BID PO 05/11/24 22:00 05/14/24 23:55 5 MG Sodium Chloride 10 ml Q8HR IV 05/11/24 22:00 05/15/24 14:00 10 ML Docusate Sodium 100 mg BIDPRN PRN PO 05/11/24 15:00 05/13/24 20:16 100 MG Acetaminophen 650 mg Q6HP PRN PO 05/11/24 15:00 Nitroglycerin 0.4 mg Q5MINP PRN SL 05/11/24 15:30 Acetaminophen/ Hydrocodone Bitart 1 tab Q6HP PRN PO 05/11/24 16:30 05/14/24 03:41 1 TAB Aspirin 81 mg DAILY PO 05/12/24 10:00 05/14/24 08:27 81 MG Atorvastatin Calcium 40 mg HS PO 05/12/24 22:00 05/14/24 23:55 40 MG Hydralazine HCl 10 mg Q6HP PRN IV 05/12/24 14:15 05/13/24 15:27 10 MG Mupirocin 1 applic BID EACHNOSTRI 05/12/24 22:00 05/17/24 21:59 05/15/24 08:03 1 APPLIC Nifedipine 60 mg QPM PO 05/12/24 18:00 05/14/24 17:51 60 MG Gabapentin 300 mg QHSP PO 05/14/24 22:00 05/14/24 23:56 300 MG Examination Examination General Appearance: Alert, Oriented X3, Cooperative, No acute distress HEENT: EOMI Respiratory: Clear to auscultation, Normal air movement Cardiovascular: Regular rate, Normal S1, Normal S2 Abdominal: Normal bowel sounds Extremities: No cyanosis, No edema, Normal pulses, No tenderness/swelling Skin: No rashes, No breakdown Neuro: Normal speech and tone laboratory and microbiology Laboratory Tests 05/15/24 09:14 Test 05/15/24 09:14 Range/Units Serum Glucose 78 74-106 mg/dL Microbiology Date/Time Source Procedure Growth Status 05/12/24 05:10 Nose MRSA Screen - Final Methicillin Resistant S.aureus Complete Problem List/Assessment/Plan Problem List/Assessment/Plan Assessment/plan #Chest likely due to NSTEMI #NSTEMI likely type 2 #Hypertensive emergency #Possible Acute on chronic diastolic heart failure Echocardiogram from 01/22/2024 shows EF 65% and grade 1 diastolic dysfunction Chest x-ray shows pulmonary vascular congestion with cephalization of pulmonary vessels Troponin I is raised, downtrending Aspirin and atorvastatin Continue carvedilol Stopped amlodipine Increased dose of nifedipine from 30 mg to 60 mg Injection hydralazine 10 mg q.6 hours as needed Cardiology on the board Telemetry #ESRD, on maintenance hemodialysis Nephrology on the board Hemodialysis performed today, 3 L of fluid taken out #Depression Continue home medication #Abnormal urinalysis, clinically insignificant #DVT prophylaxis Apixaban b.i.d. 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 Planning for discharge today Patient does not have any active complaints. Patient received dialysis today. Case discussion with Dr. Olson Plan discussed with: Patient, Other ALEXA ALLISON RESIDENT May 15, 2024 16:22
--- NOTE | 2024-05-15 17:42 | DVHPN2 ---
Progress Note - Dictate Date Seen: May 15, 2024 Has the PT tested + for MRSA If YES, has PT been informed?: No Medical Necessity Reason Pt with a Central, PICC or Fol: No Subjective Patient was seen and evaluated in follow up. Patient is on on 2 LPM NC. Patient reports her chest pain has resolved. 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 vital signs Vital Sign Date Time Temp Pulse Resp B/P (MAP) Pulse Ox O2 Delivery O2 Flow Rate FiO2 05/15/24 09:00 97.8 77 17 155/79 (104) 99 97.8 05/14/24 20:00 Nasal Cannula* 2 28 Total Intake and Output 05/14/24 05/14/24 05/15/24 15:00 23:00 07:00 Intake Total 600 ml Balance 600 ml medications Current Medications Medications Dose Ordered Sig/Homer Route Start Time Stop Time Status Last Admin Dose Admin Carvedilol 12.5 mg Q12HR PO 05/11/24 22:00 05/14/24 23:55 12.5 MG Multivit/Ca Carb/ B Cmplx/FA/Prenat 1 tab DAILY PO 05/12/24 10:00 05/15/24 08:03 1 TAB Sevelamer HCl 800 mg TIDWM PO 05/11/24 18:00 05/15/24 08:03 800 MG Apixaban 5 mg BID PO 05/11/24 22:00 05/14/24 23:55 5 MG Sodium Chloride 10 ml Q8HR IV 05/11/24 22:00 05/15/24 04:27 10 ML Docusate Sodium 100 mg BIDPRN PRN PO 05/11/24 15:00 05/13/24 20:16 100 MG Acetaminophen 650 mg Q6HP PRN PO 05/11/24 15:00 Nitroglycerin 0.4 mg Q5MINP PRN SL 05/11/24 15:30 Acetaminophen/ Hydrocodone Bitart 1 tab Q6HP PRN PO 05/11/24 16:30 05/14/24 03:41 1 TAB Aspirin 81 mg DAILY PO 05/12/24 10:00 05/14/24 08:27 81 MG Atorvastatin Calcium 40 mg HS PO 05/12/24 22:00 05/14/24 23:55 40 MG Hydralazine HCl 10 mg Q6HP PRN IV 05/12/24 14:15 05/13/24 15:27 10 MG Mupirocin 1 applic BID EACHNOSTRI 05/12/24 22:00 05/17/24 21:59 05/15/24 08:03 1 APPLIC Nifedipine 60 mg QPM PO 05/12/24 18:00 05/14/24 17:51 60 MG Gabapentin 300 mg QHSP PO 05/14/24 22:00 05/14/24 23:56 300 MG objective GENERAL: Awake, alert, oriented. LUNGS: Clear. CARDIOVASCULAR: Heart sounds are good. ABDOMEN: Soft. laboratory and microbiology Laboratory Tests 05/15/24 09:14 Test 05/15/24 09:14 Range/Units Serum Glucose 78 74-106 mg/dL Problem List Chest pain. NSTEMI. Hypertensive emergency. ESRD on hemodialysis. Depression. Assessment/Plan Continued all current supportive medical care. [place] for pain management. Eliquis. Aspirin,Lipitor. Coreg, Nifedipine. Additional plan as per the hospital course. Plan discussed with: Patient MARIO ALBERTO COURTNEY MD May 15, 2024 11:13
== END 2024-05-15 23:15 | disposition home health service (06) | DRG 199 ==
LOC: ER 11:17 → EDBD 11:17 → TELE 15:30 → TELE-E-ADS 22:23 → TELE-EAST 05-12 21:53
PROVIDERS: ADMIT Student in an Organized Health Care Education/Training Program; ATTEND Student in an Organized Health Care Education/Training Program
PROC: 5A1D70Z Performance of Urinary Filtration, Intermittent, Less than 6 Hours Per Day (ICD-10-PCS; principal; 2024-05-13)
DX: I16.1 Hypertensive emergency (principal); I21.A1 Myocardial infarction type 2; I50.33 Acute on chronic diastolic (congestive) heart failure; N18.6 End stage renal disease; D69.6 Thrombocytopenia, unspecified; D63.1 Anemia in chronic kidney disease; I13.2 Hypertensive heart and chronic kidney disease with heart failure and with stage 5 chronic kidney disease, or end stage renal disease; I25.10 Atherosclerotic heart disease of native coronary artery without angina pectoris; F32.A Depression, unspecified; Z99.2 Dependence on renal dialysis; Z88.6 Allergy status to analgesic agent; Z95.1 Presence of aortocoronary bypass graft; Z90.49 Acquired absence of other specified parts of digestive tract; Z91.199 Patient's noncompliance with other medical treatment and regimen due to unspecified reason; Z88.5 Allergy status to narcotic agent; Z82.49 Family history of ischemic heart disease and other diseases of the circulatory system; Z86.718 Personal history of other venous thrombosis and embolism; Z79.82 Long term (current) use of aspirin; Z79.899 Other long term (current) drug therapy
CPT/HCPCS: 36415; 71045; 80048; 80053; 81001; 83735; 84484; 85025; 85610; 85730; 86803; 87081; 87340; 90935; 93005; 99291; G0378; J1642; J2405